=== PATIENT | female | born 1955 | race Caucasian/White ===

== ENCOUNTER 2018-01-12 12:32 | Inpatient (IN) | payer MEDICAID, MEDICARE, SELFPAY ==
--- NOTE | 2018-01-12 14:23 | History & Physical ---
History of Present Illness - Date Date of Service for History & Physical: 01/13/18 - History of Present Illness Admitting Diagnosis: Right heel Diabetic ulcer-poss osteomylitis right heel by bone scan-chronic anemia-Left BKA-lymphodema History of Present Illness: Ms. Olivares is a 62 y/o female with recent discharge from [facility] being admitted to swing bed for continued IV antibiotic therapy due diabetic foot ulcer of the right heel. The patient says that her ulcer initially began in July and she was only applying topical antibiotics but then she noticed a foul smell coming from the foot and more discharge. She was being managed as per the wound clinic at [facility] but she failed outpatient therapy and was admitted to [facility] for IV antibiotic therapy. She also has a left BKA and is obese with a sedentary lifestyle. Her other medical history includes hypertension, diabetes mellitus type II, urinary retention and depression. She has been on IV ertapenem and gentamicin but on discharge has only been continued on ertapenem. MRI was not able to be done of the right foot due to weight restrictions. A three phase bone scan was done which showed mild increase in activity with localization to the proximal tarsal bones but no definite osteomyelitis. PCP: Dr. Solano [facility] - Communication Preferred Language?: Slovak - Nutrition Screening Poor oral intake > 1 week: No Unplanned weight loss in specified time frame: No Nutrition Support via tube feedings or parenteral nutrition: No Pressure Ulcer: No Significantly underweight define as BMI <18.5 kg/m2: No Albumin <2.5mg/dL: No Persistent nausea/vomiting/diarrhea >3 days: No Difficulty chewing/swallowing/mouth sores: No Admitting Diagnosis: Yes Nutrition Risk Score: Low Risk Past Medical History - SOCIAL HISTORY Smoking Status: Never smoker Drug use: None - SURGICAL HISTORY Past Surgical History: t&a, ovarian cyst, salpingectomy, uterine ablation, hyst , lbka, - RESPIRATORY Hx Respiratory Disorders: Yes Hx Pneumonia: Yes (2-3 yrs ago) - CARDIOVASCULAR Hx Cardio Disorders: Yes Hx Hypotension: Yes Hx Irregular Heartbeat: Yes (states high rate) - NEURO Hx Seizures: No - GI Hx GI Disorders: Yes Hx Nausea/Vomiting: Yes (when riding in back of vehicle) Comment:: hx ventral hernia - Hx Genitourinary Disorders: Yes 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) - ENDOCRINE Hx Endocrine Disorders: Yes Hx Diabetes: Yes Hx Thyroid Disease: No - MUSCULOSKELETAL Hx Musculoskeletal Disorders: Yes Hx Arthritis: Yes Comment:: lbka - PSYCH Hx Psych Problems: Yes Hx Depression: Yes - HEMATOLOGY/ONCOLOGY Hx Hematology/Oncology Disorders: No Family Medical History Hx Alcohol Use: Grandparents Hx Cancer: Father Hx Depression: Brother/Sister Hx Diabetes: Mother, Brother/Sister, Grandparents Hx Heart Disease: Mother Hx Resp Disorders: Grandparents Hx Stroke: Grandparents H&P Meds/Allergies - Allergies Allergies: Allergies Allergy/AdvReac Type Severity Reaction Status Date / Time cefaclor [[facility]] Allergy RASH Verified 10/07/15 15:18 scopolamine Allergy ITCHING Verified 10/07/15 15:18 vancomycin Allergy ITCHING Verified 10/07/15 15:18 - Home Medications Previous Rx's Medication Instructions Recorded Guaifenesin [Mucinex] 600 mg PO BID #60 tabcr 11/18/15 Insulin Detemir [Levemir Flextouch] 50 unit SQ 0900,2100 #5 syringe 11/18/15 Loratadine [Claritin] 10 mg PO DAILY #30 tablet 11/18/15 Ondansetron [Zofran Odt] 4 mg SL Q8H PRN #20 tab.rapdis 11/18/15 Ranitidine HCl [Zantac] 150 mg PO DAILY #30 tablet 11/18/15 Tamsulosin HCl [Flomax] 0.4 mg PO DAILY #30 cap.er.24h 11/18/15 Physical Exam - Vital Signs Vital Signs: Vital Signs - Last 24 Hrs Temp Pulse Resp BP Pulse Ox 01/12/18 12:00 98.1 F 105 H 20 143/73 97 - General General Appearance: Alert, Oriented x3, Cooperative, No acute distress - Head Head exam: Normal inspection - Eye Eye exam: Normal appearance, PERRL Pupils: Normal accommodation - Neck Neck exam: Normal inspection, Full ROM. negative: Tenderness - Respiratory Respiratory exam: Normal lung sounds bilaterally. negative: Respiratory distress - Cardiovascular Cardiovascular Exam: Regular rate, Normal rhythm, Normal heart sounds Peripheral Pulses: 2+: Radial (R), Radial (L) - GI/Abdominal GI/Abdominal exam: Soft, Normal bowel sounds. negative: Tenderness - Extremities Extremities exam: Other (left bka w/ dressing, right heel/plantar surface ulcer with discharge ) Plan - Swing Bed Certification Initial Certification Due: 01/12/18 14 Day Re-Cert Due: 01/26/18 44 Day Re-Cert Due: 02/25/18 74 Day Re-Cert Due: 03/27/18 - Detailed Diagnosis and Plan (1) Diabetic ulcer of right heel Current Visit: Yes Status: Acute Base Code: E11.621 - TYPE 2 DIABETES MELLITUS WITH FOOT ULCER; L97.419 - NON-PRS CHR ULCER OF RIGHT HEEL AND MIDFOOT W UNSP SEVERT Comment: 01/12/18: - oozing wound of the right mid plantar and heel. - on Ertapenem 1gm Q24H, wound care and dressing changes daily. - off loading with elevation of the foot. - follow up with ID/Podiatry. (2) Complete below knee amputation of left lower extremity Current Visit: No Status: Acute Base Code: S88.112A - COMPLETE TRAUM AMP AT LEV BETW KN AND ANKL, L LOW LEG, INIT Comment: 01/12/18: - limited mobility due to left BKA. - PT/OT consult to evaluate and treat. (3) Diabetes mellitus type 2 in obese Current Visit: No Status: Acute Base Code: E11.9 - TYPE 2 DIABETES MELLITUS WITHOUT COMPLICATIONS; E66.9 - OBESITY, UNSPECIFIED Comment: 01/12/18: - Levemir 50units BID,on sliding scale novolog - not on statin NAYELY/ARB due to reported allergy. - CBG AcHs, ADA diet (4) HTN, goal below 140/80 Current Visit: Yes Status: Acute Base Code: I10 - ESSENTIAL (PRIMARY) HYPERTENSION Comment: 01/12/18: resume Hydralazine 50mg TID (5) Depression Current Visit: Yes Status: Acute Base Code: F32.9 - MAJOR DEPRESSIVE DISORDER, SINGLE EPISODE, UNSPECIFIED Comment: 01/12/18: - on Duloxetine 60mg QHS (6) Obesity, morbid, BMI 50 or higher Current Visit: Yes Status: Acute Base Code: E66.01 - MORBID (SEVERE) OBESITY DUE TO EXCESS CALORIES Comment: 01/12/18: - sedentary lifestyle with high cardiovascular risk. - deconditioned as a result of weight and L BKA. - PT/OT daily (7) DVT prophylaxis Current Visit: No Status: Acute Base Code: [id number] - Comment: 01/12/18: - VTE prophylaxis w/ Lovenox 40mg daily. (8) DNR (do not resuscitate) Current Visit: No Status: Acute Base Code: Z66 - DO NOT RESUSCITATE Comment: 01/12/18 - patient is DNR
--- NOTE | 2018-01-12 15:33 | Rehab Evaluation ---
Patient Information - Patient Information Diagnosis: Right heel diabetic ulcer, left BKA, lymphedema, possible osteomyelitis RLE Ordered Treatment: OT Evaluate and Treat Status: Initial Evaluation Surgery: No Past Medical/Surgical Hx: PAST MEDICAL/SURGICAL HISTORY Past Surgical History t&a, ovarian cyst, salpingectomy, uterine ablation, hyst, lbka, PMH - Respiratory Hx Respiratory Disorders Yes Hx Pneumonia Yes: 2-3 yrs ago PMH - Cardiovascular Hx Cardiovascular Disorders Yes Hx Hypotension Yes Hx Irregular Heartbeat Yes: states high rate PMH - Neuro Hx Neurological Disorders No Hx Seizures No PMH - GI Hx Gastrointestinal Disorders Yes Hx Nausea/Vomiting Yes: when riding in back of vehicle Comment: hx ventral hernia PMH - Hx Genitourinary Disorders Yes Hx Urinary Tract Infection Yes: prev after arnp mayer PMH - Endocrine Hx Endocrine Disorders Yes Hx Diabetes Yes Hx Thyroid Disease No PMH - Musculoskeletal Hx Musculoskeletal Disorders Yes Hx Arthritis Yes Comment: lbka PMH - Psych Hx Psychiatric Problems Yes Hx Depression Yes PMH - Hematology/Oncology Hx Hematology/Oncology No Disorders Premorbid Status: Detail (Pt lives alone in a 1 story mobile home. She has a ramp onto a back porch and 5-6 steps leading in the house with a railing on the right side when entering. She has a walk in shower but only completes a sponge bath, she washes her hair in the kitchen sink. She has a standard height toilet with a grab bar. She is mostly wheelchair bound and hasn't been up and down her steps since July. She is Ind with all self cares, meal prep, laundry and home mgmt.) Social History: Detail (Supportive parents) Precautions: Other (Contact isolation) - Time With Patient Total Time Spent With Patient (Min): 90 Treatment Procedures: Detail (OT eval low complexity) Subjective Information - Subjective Information Per Patient Objective Data - Pain Pain Present: No - Mental Status Patient Orientation: Oriented x3 - Visual Perception Appears within normal limits for therapeutic activities - ROM Within normal limits (Aditya UE AROM WNL although shoulder flexion slightly limited but functional.) - Strength/Tone Within normal limits (Aditya UE MMT 4+/5 throughout, endurance limited for level needed with repeated transfers.) - Coordination Appears within normal limits for therapeutic activities - Bed Mobility Needs Assist (Mod assist for supine to sit, max assist x 2 for sit to supine.) - Transfers Needs Assist (Pt able to perform sit to stand from raised bed and wheelchair with CG assist, pt required mod-max assist x 2 for sit to stand from standard height toilet and wheelchair after fatigued.) - Balance Balance Sitting: Good Balance Standing: Fair - Sensation Intact (Aditya UE sensation intact.) - Gait Detail (Pt is not ambulatory at this time) - ADL's/IADL's Detail (Pt able to complete washing hair, sponge bathing, toileting, grooming/ hygiene and donning PJ gown with set up and assist for transfers (see transfer section), she was able to twin wrap her LLE stump with mod assist to position leg. Pt was very fatigued and required multiple rest breaks.) Therapy Assessment - Therapy Assessment Detail (Pt presents with significantly impaired endurance, decreased Ind with transfers and bed mobility which all impair her Ind and safety with ADLs/IADLs.) Problem List - Problem List Occupational Therapy Problem List: Detail (1. Decreased Ind with bed mobility. 2. Decreased endurance and Ind with transfers. 3. Decreased endurance for safe and Ind self cares and IADLs.) Goals - Goals Occupational Therapy Goals: 1. Pt will be Ind with bed mobility. 2. Pt will be safe and Ind with transfers from various surface heights. 3. Pt will be safe and Ind with total body bathing and dressing. 4. Pt will demonstrate improved endurance to allow safe and Ind light meal prep. Prognosis - Prognosis Good Plan - Plan Occupational Therapy Plan: OT 2-4 days per week to address mobility, endurance, ADLs/IADLs to allow return home Indly.
--- NOTE | 2018-01-12 15:34 | Occupational Therapy Tx Note ---
Occupational Therapy Tx Note - Treatment Note Tolerated: Fair Occupational Therapy Treatment Note: Detail (Attempted OT evaluation, pt very fatigued from transfer and prefers to wait until Monday to complete evaluation.)
--- NOTE | 2018-01-12 15:45 | Rehab Evaluation ---
Patient Information - Patient Information Diagnosis: Right heel diabetic ulcer, left BKA, lymphedema, possible osteomyelitis RLE Ordered Treatment: PT Evaluate and Treat Status: Initial Evaluation Surgery: No Past Medical/Surgical Hx: PAST MEDICAL/SURGICAL HISTORY Past Surgical History t&a, ovarian cyst, salpingectomy, uterine ablation, hyst, lbka, PMH - Respiratory Hx Respiratory Disorders Yes Hx Pneumonia Yes: 2-3 yrs ago PMH - Cardiovascular Hx Cardiovascular Disorders Yes Hx Hypotension Yes Hx Irregular Heartbeat Yes: states high rate PMH - Neuro Hx Neurological Disorders No Hx Seizures No PMH - GI Hx Gastrointestinal Disorders Yes Hx Nausea/Vomiting Yes: when riding in back of vehicle Comment: hx ventral hernia PMH - Hx Genitourinary Disorders Yes 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 She has a ramp onto a back porch and 5-6 steps leading in the house with a railing on the right side when entering. She has a walk in shower but only completes a sponge bath, she washes her hair in the kitchen sink. She has a standard height toilet with a grab bar. She is mostly wheelchair bound and hasn't been up and down her steps since July. She is Ind with all self cares, meal prep, laundry and home mgmt.) Social History: Detail (Supportive parents) Precautions: Other (Contact isolation) - Time With Patient Total Time Spent With Patient (Min): 30 Treatment Procedures: Detail (Initial Evaluation) Subjective Information - Subjective Information Per Patient (Patient reported pain in B LE, but did not rate the pain using 0- 10 scale. Patient also reported shortness of breath during physical activity.) Objective Data - Pain Pain Present: Yes - Mental Status Patient Orientation: Oriented x3 - Visual Perception Appears within normal limits for therapeutic activities - ROM Other (Needs to be assessed.) - Strength/Tone Not within normal limits (R LE hip flexion 2+/5 and painful, hip ABD 4+/5, hip ADD 4+/5, knee extension 3+/5 and painful, PF 4/5, DF 4/5. LLE hip flexion 2+/5 , knee extension 4/5, knee flexion 4/5.) - Bed Mobility Needs Assist (Patient requires MOD assist to help move L LE during supine to sit. Patient was IND with upper body.) - Transfers Independent (When not fatigued the patient required CG for safety with sit to and from stand transfer and with bed to wheelchair transfer , pivot transfer with use of walker.) - Balance Balance Sitting: Good Balance Standing: Poor (Due to Standing on one leg(R LE) with WB on ball of foot. Patient stands with support of walker.) - Gait Detail (Patient is nonambulatory.) Therapy Assessment - Therapy Assessment Detail (Patient requires MOD assist with bed mobility and CG for safety during transfers when not fatigued.) Problem List - Problem List Physical Therapy Problem List: Detail (1) Reduced tolerance for physical activity 2) Limited B LE AROM (Needs to be assessed) 3) Limited strength in B LE 4) B LE pain 5) Non-ambulatory/ non-WB on heel 6) Requires assistance with bed mobility) Goals - Goals Physical Therapy Goals: 1) Patient will tolerate 30 minutes of physical activity. 2) Patient will increase MMT by 1/3 of a grade in all motions in order to improve sit to stand transfers. 3) Patient will pivot transfer IND. 4 ) Patient will ambulate 3 steps with MOD assist. 5) Patient will be IND with all bed mobility. 6) Assess ROM Prognosis - Prognosis Moderate Plan - Plan Physical Therapy Plan: Patient will be seen 1-2 times a day (Mon-Fri).
--- NOTE | 2018-01-12 15:48 | Physical Therapy Tx Note ---
Physical Therapy Tx Note - Treatment Note Tolerated: Poor Total Time Spent With Patient: 15 Physical Therapy Tx Note: Detail (Patient was in bed upon arrival. Social/home history was reviewed with the patient. Patient did not agree to any further PT services due to fatigue. Will evaluate patient on 01/15/18.)
[2018-01-12] MEDS: NOVOLOG FLEXPEN (INSULIN ASPART) 100 UNITS/ML SQ SCH (17:42)
[2018-01-12] MEDS: LEVEMIR FLEXTOUCH 100 UNIT/ML INSULIN PEN SQ SCH (22:24)
[2018-01-12] MEDS: GUAIFENESIN 600 MG TABCR PO SCH (22:25)
[2018-01-12] MEDS: HYDRALAZINE HCL 25 MG TABLET PO SCH (22:25)
[2018-01-12] MEDS: DULOXETINE HCL 30 MG CAPSULE.DR PO SCH (22:26)
[2018-01-13] MEDS: NOVOLOG FLEXPEN (INSULIN ASPART) 100 UNITS/ML SQ SCH ×3 (08:51→21:45)
[2018-01-13] MEDS: HYDRALAZINE HCL 25 MG TABLET PO SCH ×4 (09:27→21:53)
[2018-01-13] MEDS: RANITIDINE HCL 150 MG TABLET PO SCH (09:27)
[2018-01-13] MEDS: TAMSULOSIN HCL 0.4 MG CAP.ER.24H PO SCH (09:27)
[2018-01-13] MEDS: GUAIFENESIN 600 MG TABCR PO SCH ×2 (09:28→21:43)
[2018-01-13] MEDS: ENOXAPARIN 40 MG/0.4 ML SYR SQ SCH (09:29)
[2018-01-13] MEDS: ERTAPENEM SODIUM 1 G in 0.9 % SODIUM CHLORIDE 100ML 100 ML IV SCH (10:00)
[2018-01-13] MEDS: LEVEMIR FLEXTOUCH 100 UNIT/ML INSULIN PEN SQ SCH ×2 (10:00→21:46)
[2018-01-13] MEDS: DULOXETINE HCL 30 MG CAPSULE.DR PO SCH (21:44)
[2018-01-14] MEDS: NOVOLOG FLEXPEN (INSULIN ASPART) 100 UNITS/ML SQ SCH ×3 (09:18→18:02)
[2018-01-14] MEDS: GUAIFENESIN 600 MG TABCR PO SCH ×2 (11:53→22:54)
[2018-01-14] MEDS: TAMSULOSIN HCL 0.4 MG CAP.ER.24H PO SCH (11:53)
[2018-01-14] MEDS: RANITIDINE HCL 150 MG TABLET PO SCH (11:53)
[2018-01-14] MEDS: HYDRALAZINE HCL 25 MG TABLET PO SCH ×3 (11:53→22:55)
[2018-01-14] MEDS: LEVEMIR FLEXTOUCH 100 UNIT/ML INSULIN PEN SQ SCH ×2 (11:54→22:53)
[2018-01-14] MEDS: ENOXAPARIN 40 MG/0.4 ML SYR SQ SCH (11:54)
[2018-01-14] MEDS: ERTAPENEM SODIUM 1 G in 0.9 % SODIUM CHLORIDE 100ML 100 ML IV SCH (11:57)
[2018-01-14] MEDS ORDERED: HEPARIN SODIUM FLUSH 100 UNITS/ML SYR 5ML IVP ONE (13:47)
[2018-01-14] MEDS ORDERED: 0.9 % SODIUM CHLORIDE 10ML SYR IVP ONE (13:49)
[2018-01-14] MEDS: DULOXETINE HCL 30 MG CAPSULE.DR PO SCH (22:55)
[2018-01-15] MEDS: NOVOLOG FLEXPEN (INSULIN ASPART) 100 UNITS/ML SQ SCH ×4 (07:44→17:37)
[2018-01-15] MEDS: HYDRALAZINE HCL 25 MG TABLET PO SCH ×3 (11:05→22:16)
[2018-01-15] MEDS: ERTAPENEM SODIUM 1 G in 0.9 % SODIUM CHLORIDE 100ML 100 ML IV SCH (11:06)
[2018-01-15] MEDS: TAMSULOSIN HCL 0.4 MG CAP.ER.24H PO SCH (11:06)
[2018-01-15] MEDS: RANITIDINE HCL 150 MG TABLET PO SCH (11:09)
[2018-01-15] MEDS: GUAIFENESIN 600 MG TABCR PO SCH ×2 (11:09→22:16)
[2018-01-15] MEDS: ENOXAPARIN 40 MG/0.4 ML SYR SQ SCH (11:09)
[2018-01-15] MEDS: LEVEMIR FLEXTOUCH 100 UNIT/ML INSULIN PEN SQ SCH ×2 (11:18→22:17)
[2018-01-15] MEDS: 0.9 % SODIUM CHLORIDE 10ML SYR IVP SCH (22:15)
[2018-01-15] MEDS: DULOXETINE HCL 30 MG CAPSULE.DR PO SCH (22:17)
[2018-01-16] MEDS: NOVOLOG FLEXPEN (INSULIN ASPART) 100 UNITS/ML SQ SCH ×3 (07:33→17:43)
[2018-01-16] MEDS: HYDRALAZINE HCL 25 MG TABLET PO SCH ×3 (11:19→22:08)
[2018-01-16] MEDS: HEPARIN SODIUM FLUSH 100 UNITS/ML SYR 5ML IVP SCH ×2 (11:20→22:09)
[2018-01-16] MEDS: RANITIDINE HCL 150 MG TABLET PO SCH (11:20)
[2018-01-16] MEDS: ENOXAPARIN 40 MG/0.4 ML SYR SQ SCH (11:20)
[2018-01-16] MEDS: TAMSULOSIN HCL 0.4 MG CAP.ER.24H PO SCH (11:20)
[2018-01-16] MEDS: GUAIFENESIN 600 MG TABCR PO SCH ×2 (11:20→22:08)
[2018-01-16] MEDS: ERTAPENEM SODIUM 1 G in 0.9 % SODIUM CHLORIDE 100ML 100 ML IV SCH (11:21)
[2018-01-16] MEDS: LEVEMIR FLEXTOUCH 100 UNIT/ML INSULIN PEN SQ SCH ×2 (11:33→22:09)
--- NOTE | 2018-01-16 11:36 | Occupational Therapy Tx Note ---
Occupational Therapy Tx Note - Treatment Note Tolerated: Good Total Time Spent With Patient: 30 (ADL, ther activity) Occupational Therapy Treatment Note: Detail (S: Pt resting in bed, reports legs feel fatigued today. O: Supine to sit Indly with use of hospital bed rail. Sit to stand with bed raised and transferred to wheelchair with set up and use of walker. Pt propelled self to bathroom and completed grooming/ hygiene at sink Indly. Pt propelled back to room Indly and completed kiya UE AROM exercises x 10 reps each - shoulder flexion, shoulder abduction, arm circles forward and reverse, elbow flexion/extension. Pt required short rest breaks due to fatigue/shortness of breath. Reviewed bedroom and bathroom set up , pt may benefit from commode and hospital bed at home. Pt left up in chair. A : Ind with grooming/hygiene, Ind with supine to sit and transfer with hospital bed, decreased endurance continues with activity) Occupational Therapy Problem List: Detail (1. Decreased Ind with bed mobility. 2. Decreased endurance and Ind with transfers. 3. Decreased endurance for safe and Ind self cares and IADLs.) Occupational Therapy Goals: 1. Pt will be Ind with bed mobility. 2. Pt will be safe and Ind with transfers from various surface heights. 3. Pt will be safe and Ind with total body bathing and dressing. 4. Pt will demonstrate improved endurance to allow safe and Ind light meal prep. Prognosis: Good Occupational Therapy Plan: OT 2-4 days per week to address mobility, endurance, ADLs/IADLs to allow return home Indly.
[2018-01-16] MEDS: 0.9 % SODIUM CHLORIDE 10ML SYR IVP SCH ×2 (14:24→22:08)
--- NOTE | 2018-01-16 15:27 | Physical Therapy Tx Note ---
Physical Therapy Tx Note - Treatment Note Tolerated: Good Total Time Spent With Patient: 20 Physical Therapy Tx Note: Detail (The patient was sleeping when PT arrived. The patient completed the following LE strengthening exercises: hip adductor squeezes, L LE hip abduction, gluteal squeezes, SAQ, bilateral hip marches, LAQ and L SLR, R quad sets all x15-20 reps. The patient was shown a leg creative guru and demonstrated in it's proper use. The patient acheived supine to sit indpendently. Discussed the patient's bedroom set up and transfer techniques and potential equipment needs.) Physical Therapy Problem List: Detail (1) Reduced tolerance for physical activity 2) Limited B LE AROM (Needs to be assessed) 3) Limited strength in B LE 4) B LE pain 5) Non-ambulatory/ non-WB on heel 6) Requires assistance with bed mobility) Physical Therapy Goals: 1) Patient will tolerate 30 minutes of physical activity. 2) Patient will increase MMT by 1/3 of a grade in all motions in order to improve sit to stand transfers. 3) Patient will pivot transfer IND. 4 ) Patient will ambulate 3 steps with MOD assist. 5) Patient will be IND with all bed mobility. 6) Assess ROM Physical Therapy Plan: Patient will be seen 1-2 times a day (Mon-Fri).
[2018-01-16] MEDS: DULOXETINE HCL 30 MG CAPSULE.DR PO SCH (22:07)
[2018-01-17] MEDS: 0.9 % SODIUM CHLORIDE 10ML SYR IVP SCH ×3 (00:02→22:07)
[2018-01-17] MEDS: NOVOLOG FLEXPEN (INSULIN ASPART) 100 UNITS/ML SQ SCH (07:22)
[2018-01-17] MEDS ORDERED: ZINC OXIDE 28.35 GM TUBE TOP ONE (09:15)
[2018-01-17] MEDS: ENOXAPARIN 40 MG/0.4 ML SYR SQ SCH (09:29)
[2018-01-17] MEDS: LEVEMIR FLEXTOUCH 100 UNIT/ML INSULIN PEN SQ SCH ×2 (09:30→22:06)
[2018-01-17] MEDS: TAMSULOSIN HCL 0.4 MG CAP.ER.24H PO SCH (09:30)
[2018-01-17] MEDS: GUAIFENESIN 600 MG TABCR PO SCH ×2 (09:30→22:08)
[2018-01-17] MEDS: RANITIDINE HCL 150 MG TABLET PO SCH (09:30)
[2018-01-17] MEDS: HYDRALAZINE HCL 25 MG TABLET PO SCH ×3 (09:30→22:07)
[2018-01-17] MEDS: ERTAPENEM SODIUM 1 G in 0.9 % SODIUM CHLORIDE 100ML 100 ML IV SCH (09:41)
[2018-01-17] MEDS ORDERED: NOVOLOG FLEXPEN (INSULIN ASPART) 100 UNITS/ML SQ PRN (10:34)
--- NOTE | 2018-01-17 11:24 | Physical Therapy Tx Note ---
Physical Therapy Tx Note - Treatment Note Physical Therapy Tx Note: Detail (The patient was seen jointly with Strip Deburrer from [facility] for trial use of prosthesis for standing and transfers. The patient could not tolerate the pressure of prosthesis strap on inner thigh of residual leg. After discussion with Strip Deburrer , it was decided due to skin condition, increased edema, and increased pain with use of prosthesis, that the patient would require a new prosthesis which cost would be out of pocket. Strip Deburrer was doubtful that patient would even be able to tolerate a new prosthetic and therefore was a questionable candidate. Strip Deburrer talked to patient concerning prosthetic candidancy. The patient was too fatigued to participate in PT treatment.) Physical Therapy Problem List: Detail (1) Reduced tolerance for physical activity 2) Limited B LE AROM (Needs to be assessed) 3) Limited strength in B LE 4) B LE pain 5) Non-ambulatory/ non-WB on heel 6) Requires assistance with bed mobility) Physical Therapy Goals: 1) Patient will tolerate 30 minutes of physical activity. 2) Patient will increase MMT by 1/3 of a grade in all motions in order to improve sit to stand transfers. 3) Patient will pivot transfer IND. 4 ) Patient will ambulate 3 steps with MOD assist. 5) Patient will be IND with all bed mobility. 6) Assess ROM Physical Therapy Plan: Patient will be seen 1-2 times a day (Mon-Fri).
[2018-01-17] MEDS: HEPARIN SODIUM FLUSH 100 UNITS/ML SYR 5ML IVP SCH ×2 (11:30→22:07)
--- NOTE | 2018-01-17 12:50 | Physician Progress Note ---
Subjective - Date Date of Physician Progress Note: 01/17/18 - Subjective Subjective Comment: Pt complains that her insulin SS is too high and that she would like to be changed to her home SS which she explained is 1 unit for every 19 units over 120. She states that her glucose levels have even been down to 50 because of the aggressiveness of the SS at the hospital. No other complaints today. Objective - Vital Signs Vital Signs: Vital Signs - Last 24 Hrs Temp Pulse Resp BP BP Pulse Ox 01/17/18 08:00 98.9 F 97 H 18 119/59 95 01/16/18 20:00 98.7 F 96 H 20 138/63 97 - General General Appearance: Alert, Oriented x3, Cooperative, No acute distress Limitations: Physical limitation (lymphadema in legs and BKA) - Head Head exam: Normal inspection - Eye Eye exam: Normal appearance - ENT ENT exam: Mucous membranes moist, Normal external ear exam Nasal Exam: Normal inspection. negative: Discharge Mouth exam: Normal external inspection - Neck Neck exam: Normal inspection, Full ROM - Respiratory Respiratory exam: Normal lung sounds bilaterally. 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 - off loading with elevation of the foot. - follow up with ID/Podiatry. Current Visit: Yes Status: Acute Base Code: E11.621 - TYPE 2 DIABETES MELLITUS WITH FOOT ULCER; L97.419 - NON-PRS CHR ULCER OF RIGHT HEEL AND MIDFOOT W UNSP SEVERT (2) Diabetes mellitus type 2 in obese Plan: - Reduce SS to home dosage. - Continue 50units long acting BID. - Glucose checks as scheduled. - not on statin NAYELY/ARB due to reported allergy. - CBG AcHs, ADA diet Current Visit: Yes Status: Chronic Base Code: E11.9 - TYPE 2 DIABETES MELLITUS WITHOUT COMPLICATIONS; E66.9 - OBESITY, UNSPECIFIED (3) Depression Plan: - on Duloxetine 60mg QHS Current Visit: Yes Status: Chronic Base Code: F32.9 - MAJOR DEPRESSIVE DISORDER, SINGLE EPISODE, UNSPECIFIED (4) HTN, goal below 140/80 Plan: - Hydralazine 50mg TID Current Visit: Yes Status: Chronic Base Code: I10 - ESSENTIAL (PRIMARY) HYPERTENSION (5) Complete below knee amputation of left lower extremity Plan: - [facility] from prosthetics to find appropriate prosthetic for pt. - limited mobility due to left BKA. - PT/OT on case Current Visit: Yes Status: Chronic Base Code: S88.112A - COMPLETE TRAUM AMP AT LEV BETW KN AND ANKL, L LOW LEG, INIT (6) DVT prophylaxis Plan: - Lovenox as prescribed. Current Visit: Yes Status: Acute Base Code: [id number] - Results - Labs Result Diagrams: 01/18/18 10:00 01/18/18 10:00 Labs Last 24 Hours: Laboratory Results - last 24 hr 01/16/18 01/16/18 01/16/18 17:55 17:59 21:54 POC Glucose 106 79 118 H 01/17/18 06:45 POC Glucose 109 DVT/PE Assessment - Risk for VTE Risk for VTE: Yes Risk Level: High Risk Assessment Date: 01/17/18 Risk Assessment Time: 12:00 VTE Orders Placed or Will Be Placed: Yes - Active Medicaitons Current Medications: Current Medications Duloxetine HCl (Cymbalta) 60 mg PO QHS [facility] Last Admin: 01/16/18 22:07 Dose: 60 mg Enoxaparin Sodium (Lovenox) 40 mg SQ DAILY [facility] Last Admin: 01/17/18 09:29 Dose: 40 mg Guaifenesin (Mucinex) 600 mg PO BID [facility] Last Admin: 01/17/18 09:30 Dose: 600 mg Heparin Sodium (Porcine) () 500 unit IVP BID [facility] Last Admin: 01/17/18 11:30 Dose: 500 unit Hydralazine HCl (Apresoline) 50 mg PO TID [facility] Last Admin: 01/17/18 09:30 Dose: 50 mg Ertapenem 1 g/ Sodium Chloride 100 mls @ 100 mls/hr IV DAILY [facility] Last Infusion: 01/17/18 11:46 Dose: Infused Insulin Aspart (Novolog Flexpen) 1 unit SQ QIDACHS PRN PRN Reason: HYPERGLYCEMIA Insulin Detemir (Levemir Flextouch) 50 unit SQ BID [facility] Last Admin: 01/17/18 09:30 Dose: 50 unit Ranitidine HCl (Zantac) 150 mg PO DAILY [facility] Last Admin: 01/17/18 09:30 Dose: 150 mg Sodium Chloride () 10 ml IVP Q12H [facility] Last Admin: 01/17/18 11:30 Dose: 10 ml Tamsulosin HCl (Flomax) 0.4 mg PO DAILY [facility] Last Admin: 01/17/18 09:30 Dose: 0.4 mg AMI Plan - Labs Result Diagrams: 01/18/18 10:00 01/18/18 10:00
--- NOTE | 2018-01-17 14:31 | Occupational Therapy Tx Note ---
Occupational Therapy Tx Note - Treatment Note Tolerated: Good Total Time Spent With Patient: 35 (ther ex) Occupational Therapy Treatment Note: Detail (S: Pt finishing toileting with nursing. O: Sitting at EOB pt completed red theraputty for house wrecker strenghtening/ endurance x 8 minutes kiya hands. Pt completed 15-20 reps of kiya elbow extension , kiya wrist flexion, ikya wrist extension, kiya scapular squeezes, left shoulder flexion, left bicep curls. Pt educated re: continuing with these exercises 2-3 times daily and she verbalized understanding. Discussed possibility of needing additional ramp at entrance, pt resistant to this but agreeable to think about it. A: Endurance continues to be somewhat impaired but overall improving.) Occupational Therapy Problem List: Detail (1. Decreased Ind with bed mobility. 2. Decreased endurance and Ind with transfers. 3. Decreased endurance for safe and Ind self cares and IADLs.) Occupational Therapy Goals: 1. Pt will be Ind with bed mobility. 2. Pt will be safe and Ind with transfers from various surface heights. 3. Pt will be safe and Ind with total body bathing and dressing. 4. Pt will demonstrate improved endurance to allow safe and Ind light meal prep. Prognosis: Good Occupational Therapy Plan: OT 2-4 days per week to address mobility, endurance, ADLs/IADLs to allow return home Indly.
[2018-01-17] MEDS: DULOXETINE HCL 30 MG CAPSULE.DR PO SCH (22:08)
[2018-01-18] MEDS: 0.9 % SODIUM CHLORIDE 10ML SYR IVP SCH ×2 (11:01→23:04)
[2018-01-18] MEDS: ENOXAPARIN 40 MG/0.4 ML SYR SQ SCH (11:01)
[2018-01-18] MEDS: HYDRALAZINE HCL 25 MG TABLET PO SCH ×4 (11:01→22:35)
[2018-01-18] MEDS: GUAIFENESIN 600 MG TABCR PO SCH ×2 (11:02→22:37)
[2018-01-18] MEDS: TAMSULOSIN HCL 0.4 MG CAP.ER.24H PO SCH (11:02)
[2018-01-18] MEDS: RANITIDINE HCL 150 MG TABLET PO SCH (11:02)
[2018-01-18] MEDS: LEVEMIR FLEXTOUCH 100 UNIT/ML INSULIN PEN SQ SCH ×2 (11:04→22:29)
[2018-01-18] MEDS: ERTAPENEM SODIUM 1 G in 0.9 % SODIUM CHLORIDE 100ML 100 ML IV SCH (11:05)
[2018-01-18 11:31] LABS: BASO % 0.4 % (0-6); EOS % 5.1 % (0-6); GRAN % 67.2 % (47-80); HEMATOCRIT 29.3 % (35.0-47.0); HEMOGLOBIN 8.6 gm/dl (11.6-16.0); MEAN CELL VOLUME 86.9 fl (81-97); MEAN CORPUSCULAR HEMOGLOBIN 25.5 pg (27-33); MEAN CORPUSCULAR HGB CONC 29.4 g/dl (32-36); MEAN PLATELET VOLUME 10.2 fl (7.4-10.4); MONO % 9.3 % (0-9); PLATELET COUNT 228 K/uL (130-400); RED BLOOD COUNT 3.37 M/uL (3.80-5.40); RED CELL DISTRIBUTION WIDTH 14.7 % (11.5-14.5); WHITE BLOOD COUNT W/O DIFF 6.9 K/uL (4.2-12.2)
--- NOTE | 2018-01-18 11:36 | Physical Therapy Tx Note ---
Physical Therapy Tx Note - Treatment Note Tolerated: Good Total Time Spent With Patient: 35 Physical Therapy Tx Note: Detail (Patient states no new complaints. Patient was reclined in bed upon ELECTORATE OFFICER arrival. Patient performed the following exercises x10-15 reps each: ankle pumps, quad sets, glut squeezes, abdominal isometrics, supine kicks left knee, SLR left, heel slides right. isometric hip abduction, and isometric hip adduction. Patient tolerated treatment well. Patient reports fatigued after treatment. Patient was left reclined in bed with call light within reach.) Physical Therapy Problem List: Detail (1) Reduced tolerance for physical activity 2) Limited B LE AROM (Needs to be assessed) 3) Limited strength in B LE 4) B LE pain 5) Non-ambulatory/ non-WB on heel 6) Requires assistance with bed mobility) Physical Therapy Goals: 1) Patient will tolerate 30 minutes of physical activity. 2) Patient will increase MMT by 1/3 of a grade in all motions in order to improve sit to stand transfers. 3) Patient will pivot transfer IND. 4 ) Patient will ambulate 3 steps with MOD assist. 5) Patient will be IND with all bed mobility. 6) Assess ROM Prognosis: Good Physical Therapy Plan: Patient will be seen 1-2 times a day (Mon-Fri).
[2018-01-18 11:50] LABS: CREATININE 1.6 mg/dL (0.5-0.9)
[2018-01-18] MEDS ORDERED: CALCIUM GLUCONATE IV ONE (12:17)
[2018-01-18] MEDS ORDERED: SODIUM CHLORIDE 0.9% IV ONE (12:17)
[2018-01-18] MEDS ORDERED: SPS 15 GM/60 ML PO ONE (12:21)
[2018-01-18] MEDS ORDERED: ALBUTEROL SULFATE (0.083%) 2.5 MG/3 ML NEB INH ONE (12:47)
[2018-01-18] MEDS: NOVOLOG FLEXPEN (INSULIN ASPART) 100 UNITS/ML SQ SCH ×3 (12:47→22:28)
--- NOTE | 2018-01-18 13:04 | Physician Progress Note ---
Subjective - Date Date of Physician Progress Note: 01/18/18 - Subjective Subjective Comment: Notified by nurse that the Pt's K+ is elevated currently at 6.2. I have come to evaluate the pt at bedside. She denies of any complaints at this time. No weakness, palpitations, CP, or SOB. She is feeling as she has at baseline. 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 negative: Discharge Mouth exam: Normal external inspection - Neck Neck exam: Normal inspection, Full ROM - Respiratory Respiratory exam: Normal lung sounds bilaterally. negative: Respiratory distress - Cardiovascular Cardiovascular Exam: Regular rate, Normal rhythm, Systolic murmur (2/6, known) Peripheral Pulses: 2+: Radial (R), Radial (L) - GI/Abdominal GI/Abdominal exam: Soft, Normal bowel sounds. negative: Tenderness - Extremities Extremities exam: Other (left bka w/ dressing, lymphadema in both legs - wrapped. Right heel wound is dry. No erythema or oozing. ) - Psychiatric Psychiatric exam: Normal affect, Normal mood Assessment and Plan - Assessment and Plan (1) Hyperkalemia Plan: - Insulin given per SS. - Kayexelate given 15 mg PO. - Calcium gluconate to stabilize heart tissue given. - Albuterol nebulized once. - Will rpt K+ level in PM. - Pt is asymptomatic at this time and K+ can be decreased slowly throughout the day. - Tele applied to monitor heart. Current Visit: Yes Status: Acute Base Code: E87.5 - HYPERKALEMIA Priority : High (2) Diabetic ulcer of right heel Plan: - on Ertapenem 1gm Q24H, wound care and dressing changes daily. - off loading with elevation of the foot. - follow up with ID/Podiatry. Current Visit: Yes Status: Acute Base Code: E11.621 - TYPE 2 DIABETES MELLITUS WITH FOOT ULCER; L97.419 - NON-PRS CHR ULCER OF RIGHT HEEL AND MIDFOOT W UNSP SEVERT (3) Diabetes mellitus type 2 in obese Plan: - Reduce SS to home dosage. - Continue 50units long acting BID. - Glucose checks as scheduled. - not on statin NAYELY/ARB due to reported allergy. - CBG AcHs, ADA diet Current Visit: Yes Status: Chronic Base Code: E11.9 - TYPE 2 DIABETES MELLITUS WITHOUT COMPLICATIONS; E66.9 - OBESITY, UNSPECIFIED (4) Depression Plan: - on Duloxetine 60mg QHS Current Visit: Yes Status: Chronic Base Code: F32.9 - MAJOR DEPRESSIVE DISORDER, SINGLE EPISODE, UNSPECIFIED (5) HTN, goal below 140/80 Plan: - Hydralazine 50mg TID Current Visit: Yes Status: Chronic Base Code: I10 - ESSENTIAL (PRIMARY) HYPERTENSION (6) Complete below knee amputation of left lower extremity Plan: - [facility] from prosthetics to find appropriate prosthetic for pt. - limited mobility due to left BKA. - PT/OT on case Current Visit: Yes Status: Chronic Base Code: S88.112A - COMPLETE TRAUM AMP AT LEV BETW KN AND ANKL, L LOW LEG, INIT (7) DVT prophylaxis Plan: - Lovenox as prescribed. Current Visit: Yes Status: Acute Base Code: [id number] - Results - Labs Result Diagrams: 01/18/18 11:15 01/18/18 11:15 Labs Last 24 Hours: Laboratory Results - last 24 hr 01/17/18 01/17/18 01/18/18 11:45 21:36 11:15 WBC 6.9 RBC 3.37 L Hgb 8.6 L Hct 29.3 L MCV 86.9 MCH 25.5 L MCHC 29.4 L RDW 14.7 H Plt Count 228 MPV 10.2 Gran % 67.2 Lymphocytes % 18.0 Monocytes % 9.3 H Eosinophils % 5.1 Basophils % 0.4 Sodium Potassium Chloride Carbon Dioxide Anion Gap BUN Creatinine Estimated GFR POC Glucose 126 H 160 H Random Glucose Calcium 01/18/18 01/18/18 11:15 12:39 WBC RBC Hgb Hct MCV MCH MCHC RDW Plt Count MPV Gran % Lymphocytes % Monocytes % Eosinophils % Basophils % Sodium 137 Potassium 6.2 H* Chloride 103 Carbon Dioxide 24.0 Anion Gap 10.0 BUN 38 H Creatinine 1.6 H Estimated GFR 35 POC Glucose 153 H Random Glucose 166 H Calcium 8.6 L DVT/PE Assessment - Risk for VTE Risk for VTE: No Risk Level: High Risk Assessment Date: 01/17/18 Risk Assessment Time: 12:00 VTE Orders Placed or Will Be Placed: Yes - Active Medicaitons Current Medications: Current Medications Albuterol Sulfate () 2.5 mg INH NOW ONE Stop: 01/18/18 12:48 Duloxetine HCl (Cymbalta) 60 mg PO QHS [facility] Last Admin: 01/17/18 22:08 Dose: 60 mg Enoxaparin Sodium (Lovenox) 40 mg SQ DAILY [facility] Last Admin: 01/18/18 11:01 Dose: 40 mg Guaifenesin (Mucinex) 600 mg PO BID [facility] Last Admin: 01/18/18 11:02 Dose: 600 mg Heparin Sodium (Porcine) () 500 unit IVP BID [facility] Last Admin: 01/17/18 22:07 Dose: 500 unit Hydralazine HCl (Apresoline) 50 mg PO TID [facility] Last Admin: 01/18/18 11:01 Dose: 50 mg Ertapenem 1 g/ Sodium Chloride 100 mls @ 100 mls/hr IV DAILY [facility] Last Admin: 01/18/18 11:05 Dose: 100 mls/hr Calcium Gluconate 1,500 mg/ (Sodium Chloride) 115 mls @ 100 mls/hr IV NOW ONE Stop: 01/18/18 13:22 Insulin Aspart (Novolog Flexpen) 1 unit SQ QIDACHS [facility] Last Admin: 01/18/18 12:47 Dose: 2 unit Insulin Detemir (Levemir Flextouch) 50 unit SQ BID [facility] Last Admin: 01/18/18 11:04 Dose: 50 unit Ranitidine HCl (Zantac) 150 mg PO DAILY [facility] Last Admin: 01/18/18 11:02 Dose: 150 mg Sodium Chloride () 10 ml IVP Q12H [facility] Last Admin: 01/18/18 11:01 Dose: 10 ml Tamsulosin HCl (Flomax) 0.4 mg PO DAILY [facility] Last Admin: 01/18/18 11:02 Dose: 0.4 mg AMI Plan - Labs Result Diagrams: 01/18/18 11:15 01/18/18 11:15
--- NOTE | 2018-01-18 13:59 | Physical Therapy Tx Note ---
Physical Therapy Tx Note - Treatment Note Tolerated: Poor Total Time Spent With Patient: 35 Physical Therapy Tx Note: Detail (Patient was seated in bed upon OSTOMY NURSE arrival. OSTOMY NURSE entered with nurse and nursing wanted to change sheets and put air mattress on bed. Patient transferred sit to and from stand independently. Patient performed standing left hip abduction x5, squats x5, and left hip flexion x5. Patient states had a cramp in right leg and had to sit down, pt performed independently. Patient states she felt she was slipping off bed. Patient transferred sit to and from stand x2 mod assist x2. Patient was scooted up in seated postition max assist x2. Patient transferred sit to supine max assist x3. Patient scooted up in bed max assist x3. Patient scooted over and up in bed max assist x4. Patient was difficult to scoot due to air mattress. Patient reports feeling tired after standing and transfers. Patient was left supine in bed with call light within reach.) Physical Therapy Problem List: Detail (1) Reduced tolerance for physical activity 2) Limited B LE AROM (Needs to be assessed) 3) Limited strength in B LE 4) B LE pain 5) Non-ambulatory/ non-WB on heel 6) Requires assistance with bed mobility) Physical Therapy Goals: 1) Patient will tolerate 30 minutes of physical activity. 2) Patient will increase MMT by 1/3 of a grade in all motions in order to improve sit to stand transfers. 3) Patient will pivot transfer IND. 4 ) Patient will ambulate 3 steps with MOD assist. 5) Patient will be IND with all bed mobility. 6) Assess ROM Prognosis: Good Physical Therapy Plan: Patient will be seen 1-2 times a day (Mon-Fri).
[2018-01-18] MEDS: HEPARIN SODIUM FLUSH 100 UNITS/ML SYR 5ML IVP SCH ×2 (15:25→23:05)
[2018-01-18 20:26] LABS: CREATININE 1.6 mg/dL (0.5-0.9)
[2018-01-18] MEDS: DULOXETINE HCL 30 MG CAPSULE.DR PO SCH (22:36)
[2018-01-19 07:08] LABS: CREATININE 1.5 mg/dL (0.5-0.9)
[2018-01-19] MEDS: NOVOLOG FLEXPEN (INSULIN ASPART) 100 UNITS/ML SQ SCH ×4 (08:11→21:34)
[2018-01-19] MEDS ORDERED: SPS 15 GM/60 ML PO ONE ×2 (08:30→18:00)
[2018-01-19] MEDS: ENOXAPARIN 40 MG/0.4 ML SYR SQ SCH (09:58)
[2018-01-19] MEDS: HEPARIN SODIUM FLUSH 100 UNITS/ML SYR 5ML IVP SCH ×3 (09:58→21:27)
[2018-01-19] MEDS: ERTAPENEM SODIUM 1 G in 0.9 % SODIUM CHLORIDE 100ML 100 ML IV SCH (09:59)
[2018-01-19] MEDS: RANITIDINE HCL 150 MG TABLET PO SCH (09:59)
[2018-01-19] MEDS: GUAIFENESIN 600 MG TABCR PO SCH ×2 (09:59→21:27)
[2018-01-19] MEDS: TAMSULOSIN HCL 0.4 MG CAP.ER.24H PO SCH (10:00)
[2018-01-19] MEDS: HYDRALAZINE HCL 25 MG TABLET PO SCH ×3 (10:00→21:28)
[2018-01-19] MEDS: 0.9 % SODIUM CHLORIDE 10ML SYR IVP SCH ×3 (10:00→21:27)
[2018-01-19] MEDS: LEVEMIR FLEXTOUCH 100 UNIT/ML INSULIN PEN SQ SCH ×2 (10:01→21:28)
--- NOTE | 2018-01-19 10:52 | Physical Therapy Tx Note ---
Physical Therapy Tx Note - Treatment Note Tolerated: Good Total Time Spent With Patient: 15 Physical Therapy Tx Note: Detail (The patient was in bed when PT arrived. The patient stated the city tax auditor was going to call her concerning modification of prosthesis. The patient completed the following LE exercises. L TKA exercises: SAQ, SLR , resisted hip abduction, gluteal sets, R LE ankle pumps, quad sets and hip abduction and adduction, all exercises reps until fatigued.The patient tolerated treatment well and was independent with LE strengthening HEP.) Physical Therapy Problem List: Detail (1) Reduced tolerance for physical activity 2) Limited B LE AROM (Needs to be assessed) 3) Limited strength in B LE 4) B LE pain 5) Non-ambulatory/ non-WB on heel 6) Requires assistance with bed mobility) Physical Therapy Goals: 1) Patient will tolerate 30 minutes of physical activity. 2) Patient will increase MMT by 1/3 of a grade in all motions in order to improve sit to stand transfers. 3) Patient will pivot transfer IND. 4 ) Patient will ambulate 3 steps with MOD assist. 5) Patient will be IND with all bed mobility. 6) Assess ROM Physical Therapy Plan: Patient will be seen 1-2 times a day (Mon-Fri).
--- NOTE | 2018-01-19 16:28 | Physical Therapy Tx Note ---
Physical Therapy Tx Note - Treatment Note Tolerated: Good Total Time Spent With Patient: 30 Physical Therapy Tx Note: Detail (The patient was in bed when PT arrived. The patient completed the following exercises: L UE: bicep curls, tricep curls, D1 PNF, shoulder flexion, wrist curls bilaterally (re T - band , shoulder abduction bilaterally without resistance. All reps until fatigued. The patient was independent with supine to sit and completed bilateral hip marching and LAQ until fatigued. Patient was left on edge of bed , call light was within reach.) Physical Therapy Problem List: Detail (1) Reduced tolerance for physical activity 2) Limited B LE AROM (Needs to be assessed) 3) Limited strength in B LE 4) B LE pain 5) Non-ambulatory/ non-WB on heel 6) Requires assistance with bed mobility) Physical Therapy Goals: 1) Patient will tolerate 30 minutes of physical activity. 2) Patient will increase MMT by 1/3 of a grade in all motions in order to improve sit to stand transfers. 3) Patient will pivot transfer IND. 4 ) Patient will ambulate 3 steps with MOD assist. 5) Patient will be IND with all bed mobility. 6) Assess ROM Physical Therapy Plan: Patient will be seen 1-2 times a day (Mon-Fri).
[2018-01-19] MEDS: DULOXETINE HCL 30 MG CAPSULE.DR PO SCH (21:28)
[2018-01-20 06:59] LABS: CREATININE 1.4 mg/dL (0.5-0.9)
[2018-01-20] MEDS: NOVOLOG FLEXPEN (INSULIN ASPART) 100 UNITS/ML SQ SCH ×4 (08:20→21:57)
[2018-01-20] MEDS: SPS 15 GM/60 ML PO SCH ×2 (08:22→17:47)
[2018-01-20] MEDS: 0.9 % SODIUM CHLORIDE 10ML SYR IVP SCH ×2 (11:13→21:55)
[2018-01-20] MEDS: HYDRALAZINE HCL 25 MG TABLET PO SCH ×3 (11:13→21:55)
[2018-01-20] MEDS: TAMSULOSIN HCL 0.4 MG CAP.ER.24H PO SCH (11:13)
[2018-01-20] MEDS: HEPARIN SODIUM FLUSH 100 UNITS/ML SYR 5ML IVP SCH ×2 (11:13→21:55)
[2018-01-20] MEDS: ERTAPENEM SODIUM 1 G in 0.9 % SODIUM CHLORIDE 100ML 100 ML IV SCH (11:14)
[2018-01-20] MEDS: ENOXAPARIN 40 MG/0.4 ML SYR SQ SCH (11:14)
[2018-01-20] MEDS: RANITIDINE HCL 150 MG TABLET PO SCH (11:15)
[2018-01-20] MEDS: GUAIFENESIN 600 MG TABCR PO SCH ×2 (11:15→21:56)
[2018-01-20] MEDS: LEVEMIR FLEXTOUCH 100 UNIT/ML INSULIN PEN SQ SCH ×2 (11:58→21:57)
[2018-01-20] MEDS: DULOXETINE HCL 30 MG CAPSULE.DR PO SCH (21:56)
[2018-01-21] MEDS: NOVOLOG FLEXPEN (INSULIN ASPART) 100 UNITS/ML SQ SCH ×4 (07:41→22:01)
[2018-01-21] MEDS: SPS 15 GM/60 ML PO SCH ×2 (08:04→17:23)
[2018-01-21] MEDS: ERTAPENEM SODIUM 1 G in 0.9 % SODIUM CHLORIDE 100ML 100 ML IV SCH (09:35)
[2018-01-21] MEDS: ENOXAPARIN 40 MG/0.4 ML SYR SQ SCH (09:36)
[2018-01-21] MEDS: TAMSULOSIN HCL 0.4 MG CAP.ER.24H PO SCH (09:36)
[2018-01-21] MEDS: GUAIFENESIN 600 MG TABCR PO SCH ×2 (09:36→21:55)
[2018-01-21] MEDS: HYDRALAZINE HCL 25 MG TABLET PO SCH ×3 (09:36→21:51)
[2018-01-21] MEDS: RANITIDINE HCL 150 MG TABLET PO SCH (09:36)
[2018-01-21] MEDS: HEPARIN SODIUM FLUSH 100 UNITS/ML SYR 5ML IVP SCH ×2 (09:37→21:51)
[2018-01-21] MEDS: LEVEMIR FLEXTOUCH 100 UNIT/ML INSULIN PEN SQ SCH ×2 (09:37→21:57)
[2018-01-21] MEDS: 0.9 % SODIUM CHLORIDE 10ML SYR IVP SCH ×2 (09:37→21:51)
[2018-01-21] MEDS: DULOXETINE HCL 30 MG CAPSULE.DR PO SCH (21:51)
[2018-01-22 06:42] LABS: CREATININE 1.2 mg/dL (0.5-0.9)
[2018-01-22] MEDS: NOVOLOG FLEXPEN (INSULIN ASPART) 100 UNITS/ML SQ SCH ×4 (08:26→22:01)
[2018-01-22] MEDS: SPS 15 GM/60 ML PO SCH ×2 (08:57→19:17)
[2018-01-22] MEDS: ERTAPENEM SODIUM 1 G in 0.9 % SODIUM CHLORIDE 100ML 100 ML IV SCH (10:31)
[2018-01-22] MEDS: TAMSULOSIN HCL 0.4 MG CAP.ER.24H PO SCH (10:31)
[2018-01-22] MEDS: ENOXAPARIN 40 MG/0.4 ML SYR SQ SCH (10:31)
[2018-01-22] MEDS: RANITIDINE HCL 150 MG TABLET PO SCH (10:31)
[2018-01-22] MEDS: GUAIFENESIN 600 MG TABCR PO SCH ×2 (10:32→22:00)
[2018-01-22] MEDS: LEVEMIR FLEXTOUCH 100 UNIT/ML INSULIN PEN SQ SCH ×2 (10:32→22:02)
[2018-01-22] MEDS: HYDRALAZINE HCL 25 MG TABLET PO SCH ×3 (10:32→21:59)
[2018-01-22] MEDS: 0.9 % SODIUM CHLORIDE 10ML SYR IVP SCH ×3 (10:33→22:02)
[2018-01-22] MEDS: ACETAMINOPHEN 500 MG TABLET PO PRN (10:55)
[2018-01-22] MEDS: HEPARIN SODIUM FLUSH 100 UNITS/ML SYR 5ML IVP SCH ×2 (11:48→21:59)
[2018-01-22] MEDS: DULOXETINE HCL 30 MG CAPSULE.DR PO SCH (21:59)
[2018-01-23] MEDS: 0.9 % SODIUM CHLORIDE 10ML SYR IVP SCH ×6 (00:45→22:52)
[2018-01-23] MEDS: ACETAMINOPHEN 500 MG TABLET PO PRN (05:03)
[2018-01-23] MEDS: NOVOLOG FLEXPEN (INSULIN ASPART) 100 UNITS/ML SQ SCH ×5 (08:04→22:53)
[2018-01-23] MEDS: SPS 15 GM/60 ML PO SCH ×2 (09:35→19:33)
[2018-01-23] MEDS: HYDRALAZINE HCL 25 MG TABLET PO SCH ×3 (09:35→22:34)
[2018-01-23] MEDS: GUAIFENESIN 600 MG TABCR PO SCH ×2 (09:35→22:35)
[2018-01-23] MEDS: TAMSULOSIN HCL 0.4 MG CAP.ER.24H PO SCH (09:35)
[2018-01-23] MEDS: ERTAPENEM SODIUM 1 G in 0.9 % SODIUM CHLORIDE 100ML 100 ML IV SCH (09:36)
[2018-01-23] MEDS: RANITIDINE HCL 150 MG TABLET PO SCH (09:36)
[2018-01-23] MEDS: LEVEMIR FLEXTOUCH 100 UNIT/ML INSULIN PEN SQ SCH ×2 (09:37→22:53)
[2018-01-23] MEDS: ENOXAPARIN 40 MG/0.4 ML SYR SQ SCH (09:40)
[2018-01-23] MEDS: HEPARIN SODIUM FLUSH 100 UNITS/ML SYR 5ML IVP SCH ×2 (11:04→22:36)
--- NOTE | 2018-01-23 11:56 | Physical Therapy Tx Note ---
Physical Therapy Tx Note - Treatment Note Physical Therapy Tx Note: Detail (The patient refused PT secondary leavng for an appointment.) Physical Therapy Problem List: Detail (1) Reduced tolerance for physical activity 2) Limited B LE AROM (Needs to be assessed) 3) Limited strength in B LE 4) B LE pain 5) Non-ambulatory/ non-WB on heel 6) Requires assistance with bed mobility) Physical Therapy Goals: 1) Patient will tolerate 30 minutes of physical activity. 2) Patient will increase MMT by 1/3 of a grade in all motions in order to improve sit to stand transfers. 3) Patient will pivot transfer IND. 4 ) Patient will ambulate 3 steps with MOD assist. 5) Patient will be IND with all bed mobility. 6) Assess ROM Physical Therapy Plan: Patient will be seen 1-2 times a day (Mon-Fri).
[2018-01-23] MEDS: DULOXETINE HCL 30 MG CAPSULE.DR PO SCH (22:34)
[2018-01-24] MEDS: 0.9 % SODIUM CHLORIDE 10ML SYR IVP SCH ×5 (00:53→22:02)
[2018-01-24 07:00] LABS: CREATININE 1.3 mg/dL (0.5-0.9)
[2018-01-24] MEDS: NOVOLOG FLEXPEN (INSULIN ASPART) 100 UNITS/ML SQ SCH ×4 (07:56→22:27)
[2018-01-24] MEDS: SPS 15 GM/60 ML PO SCH (08:43)
[2018-01-24] MEDS: ERTAPENEM SODIUM 1 G in 0.9 % SODIUM CHLORIDE 100ML 100 ML IV SCH (11:23)
[2018-01-24] MEDS: GUAIFENESIN 600 MG TABCR PO SCH ×2 (11:24→22:00)
[2018-01-24] MEDS: RANITIDINE HCL 150 MG TABLET PO SCH (11:24)
[2018-01-24] MEDS: ENOXAPARIN 40 MG/0.4 ML SYR SQ SCH (11:24)
[2018-01-24] MEDS: HYDRALAZINE HCL 25 MG TABLET PO SCH ×3 (11:24→22:00)
--- NOTE | 2018-01-24 11:24 | Occupational Therapy Tx Note ---
Occupational Therapy Tx Note - Treatment Note Tolerated: Good Total Time Spent With Patient: 35 (ther ex) Occupational Therapy Treatment Note: Detail (S: Pt resting in bed. O: Supine to sit Indly, stand pivot transfer to wheelchair with bed raised and use of walker Indly. Pt propelled self 75 feet before becoming fatigued. Pt transported to rehab gym. She completed kiya UE ther ex as follows: weighted pulleys at 5# kiya shoulder extension and triceps, kiya bicep curls 5#, kiya shoulder flexion 3# x 20 reps each. Repetitive overhead reaching and resistive pinching with 1# wrist weight kiya UEs using resistive clothespins. Pt educated to complete wheelchair pushups and propel self in hallway 2 x daily to improve over endurance. Pt reports she is confident with all self cares including sponge bathing, dressing, grooming/hygiene tasks. Pt transported back to room and left up in wheelchair. A: Improved Ind with transfers and bed mobility, endurance improving with UE activity.) Occupational Therapy Problem List: Detail (1. Decreased Ind with bed mobility. 2. Decreased endurance and Ind with transfers. 3. Decreased endurance for safe and Ind self cares and IADLs.) Occupational Therapy Goals: 1. Pt will be Ind with bed mobility. 2. Pt will be safe and Ind with transfers from various surface heights. 3. Pt will be safe and Ind with total body bathing and dressing. 4. Pt will demonstrate improved endurance to allow safe and Ind light meal prep. Prognosis: Good Occupational Therapy Plan: OT 2-4 days per week to address mobility, endurance, ADLs/IADLs to allow return home Indly.
[2018-01-24] MEDS: LEVEMIR FLEXTOUCH 100 UNIT/ML INSULIN PEN SQ SCH ×2 (11:25→22:26)
[2018-01-24] MEDS: TAMSULOSIN HCL 0.4 MG CAP.ER.24H PO SCH (11:25)
[2018-01-24] MEDS: HEPARIN SODIUM FLUSH 100 UNITS/ML SYR 5ML IVP SCH ×2 (12:57→21:59)
--- NOTE | 2018-01-24 15:40 | Physical Therapy Tx Note ---
Physical Therapy Tx Note - Treatment Note Tolerated: Fair Total Time Spent With Patient: 20 Physical Therapy Tx Note: Detail (Patient was up in wheelchair upon arrival, patient did not have any complaints of pain, but did report increased edema in her R LE. Patient was to fatigued to attempt transfers, but did perfrom 1x20 LAQ , ankle pumps, marches, and hip ADD. Patient was left up in wheelchair with R leg in leg rest and call light in reach.) Physical Therapy Problem List: Detail (1) Reduced tolerance for physical activity 2) Limited B LE AROM (Needs to be assessed) 3) Limited strength in B LE 4) B LE pain 5) Non-ambulatory/ non-WB on heel 6) Requires assistance with bed mobility) Physical Therapy Goals: 1) Patient will tolerate 30 minutes of physical activity. 2) Patient will increase MMT by 1/3 of a grade in all motions in order to improve sit to stand transfers. 3) Patient will pivot transfer IND. 4 ) Patient will ambulate 3 steps with MOD assist. 5) Patient will be IND with all bed mobility. 6) Assess ROM Prognosis: Good Physical Therapy Plan: Patient will be seen 1-2 times a day (Mon-Fri).
[2018-01-24] MEDS: DULOXETINE HCL 30 MG CAPSULE.DR PO SCH (21:59)
[2018-01-25] MEDS: 0.9 % SODIUM CHLORIDE 10ML SYR IVP SCH ×4 (01:56→21:37)
[2018-01-25] MEDS: NOVOLOG FLEXPEN (INSULIN ASPART) 100 UNITS/ML SQ SCH ×4 (08:05→23:25)
[2018-01-25] MEDS: SPS 15 GM/60 ML PO SCH (08:07)
[2018-01-25] MEDS: ACETAMINOPHEN 500 MG TABLET PO PRN ×2 (08:08→16:26)
[2018-01-25] MEDS: TAMSULOSIN HCL 0.4 MG CAP.ER.24H PO SCH (09:34)
[2018-01-25] MEDS: HYDRALAZINE HCL 25 MG TABLET PO SCH ×3 (09:34→21:35)
[2018-01-25] MEDS: GUAIFENESIN 600 MG TABCR PO SCH ×2 (09:35→21:35)
[2018-01-25] MEDS: RANITIDINE HCL 150 MG TABLET PO SCH (09:35)
[2018-01-25] MEDS: HEPARIN SODIUM FLUSH 100 UNITS/ML SYR 5ML IVP SCH ×2 (09:36→21:36)
[2018-01-25] MEDS: ERTAPENEM SODIUM 1 G in 0.9 % SODIUM CHLORIDE 100ML 100 ML IV SCH (09:36)
[2018-01-25] MEDS: LEVEMIR FLEXTOUCH 100 UNIT/ML INSULIN PEN SQ SCH ×2 (09:36→23:25)
[2018-01-25] MEDS: ENOXAPARIN 40 MG/0.4 ML SYR SQ SCH (09:36)
--- NOTE | 2018-01-25 11:01 | Physical Therapy Tx Note ---
Physical Therapy Tx Note - Treatment Note Physical Therapy Tx Note: Detail (Patient was reclined in bed sleeping upon CLAMMER arrival. Patient declined treatment due to not feeling well, has headache and is nauseous.) Physical Therapy Problem List: Detail (1) Reduced tolerance for physical activity 2) Limited B LE AROM (Needs to be assessed) 3) Limited strength in B LE 4) B LE pain 5) Non-ambulatory/ non-WB on heel 6) Requires assistance with bed mobility) Physical Therapy Goals: 1) Patient will tolerate 30 minutes of physical activity. 2) Patient will increase MMT by 1/3 of a grade in all motions in order to improve sit to stand transfers. 3) Patient will pivot transfer IND. 4 ) Patient will ambulate 3 steps with MOD assist. 5) Patient will be IND with all bed mobility. 6) Assess ROM Physical Therapy Plan: Patient will be seen 1-2 times a day (Mon-Fri).
[2018-01-25] MEDS: DULOXETINE HCL 30 MG CAPSULE.DR PO SCH (21:34)
[2018-01-26] MEDS: 0.9 % SODIUM CHLORIDE 10ML SYR IVP SCH ×5 (00:40→22:18)
[2018-01-26 07:11] LABS: CREATININE 1.2 mg/dL (0.5-0.9)
[2018-01-26] MEDS: HYDRALAZINE HCL 25 MG TABLET PO SCH ×3 (10:37→22:17)
[2018-01-26] MEDS: RANITIDINE HCL 150 MG TABLET PO SCH (10:37)
[2018-01-26] MEDS: GUAIFENESIN 600 MG TABCR PO SCH ×2 (10:38→22:17)
[2018-01-26] MEDS: ENOXAPARIN 40 MG/0.4 ML SYR SQ SCH (10:38)
[2018-01-26] MEDS: TAMSULOSIN HCL 0.4 MG CAP.ER.24H PO SCH (10:38)
[2018-01-26] MEDS: ERTAPENEM SODIUM 1 G in 0.9 % SODIUM CHLORIDE 100ML 100 ML IV SCH (10:41)
[2018-01-26] MEDS: HEPARIN SODIUM FLUSH 100 UNITS/ML SYR 5ML IVP SCH ×3 (10:54→22:18)
--- NOTE | 2018-01-26 12:25 | Physical Therapy Tx Note ---
Physical Therapy Tx Note - Treatment Note Tolerated: Good Total Time Spent With Patient: 30 Physical Therapy Tx Note: Detail (Patient was lying supine in bed upon arrival, with no complaints of pain. Patient performed supine to sit and standing pivot transfer to a wheelchair IND with SBA for safety. Patient performed 2X20 of ankle pumps, LAQ, hip marches, hip ADD pillow squeeze, and glut sets. Patient tolerated exercises well but complains of R hip pain during marches. Patient was left up in chair with call light in reach.) Physical Therapy Problem List: Detail (1) Reduced tolerance for physical activity 2) Limited B LE AROM (Needs to be assessed) 3) Limited strength in B LE 4) B LE pain 5) Non-ambulatory/ non-WB on heel 6) Requires assistance with bed mobility) Physical Therapy Goals: 1) Patient will tolerate 30 minutes of physical activity. 2) Patient will increase MMT by 1/3 of a grade in all motions in order to improve sit to stand transfers. 3) Patient will pivot transfer IND. 4 ) Patient will ambulate 3 steps with MOD assist. 5) Patient will be IND with all bed mobility. 6) Assess ROM Prognosis: Moderate Physical Therapy Plan: Patient will be seen 1-2 times a day (Mon-Fri).
[2018-01-26] MEDS: NOVOLOG FLEXPEN (INSULIN ASPART) 100 UNITS/ML SQ SCH ×4 (12:57→22:37)
[2018-01-26] MEDS: LEVEMIR FLEXTOUCH 100 UNIT/ML INSULIN PEN SQ SCH ×2 (14:25→22:25)
[2018-01-26] MEDS: SPS 15 GM/60 ML PO SCH ×4 (14:26→22:19)
--- NOTE | 2018-01-26 15:01 | Occupational Therapy Tx Note ---
Occupational Therapy Tx Note - Treatment Note Tolerated: Good Total Time Spent With Patient: 30 (ther ex) Occupational Therapy Treatment Note: Detail (S: Pt up in wheelchair, feeling OK today. O: Pt propelled self 75 feet in wheelchair and then transported to rehab gym vper therapist. Pt completed kiya UE strengthening as follows: weighted pulleys (5#) for shoulder extension 160-45 degrees, elbow extension and shoulder extension 90-minus 10 degrees x 20 reps each. Repetitive overhead reaching with resistive clothespins with 2# wrist weights kiya UEs. Pt transported back to room and left up in wheelchair. A: Increased UE fatigue with 2# wrist weights.) Occupational Therapy Problem List: Detail (1. Decreased Ind with bed mobility. 2. Decreased endurance and Ind with transfers. 3. Decreased endurance for safe and Ind self cares and IADLs.) Occupational Therapy Goals: 1. Pt will be Ind with bed mobility. 2. Pt will be safe and Ind with transfers from various surface heights. 3. Pt will be safe and Ind with total body bathing and dressing. 4. Pt will demonstrate improved endurance to allow safe and Ind light meal prep. Prognosis: Good Occupational Therapy Plan: OT 2-4 days per week to address mobility, endurance, ADLs/IADLs to allow return home Indly.
--- NOTE | 2018-01-26 15:44 | Physician Progress Note ---
Subjective - Date Date of Physician Progress Note: 01/26/18 - Subjective Subjective Comment: Pt denies any complaints today. Nursing noted that she has had a rash on her bottom that they wanted me to look at. They have been applying zinc oxide TP. The nurses state that they added aquasel foam on top, to help prevent the zinc oxide from getting rubbed off onto pants - this has helped and the area and it looks less erythematous. Pt denies any episodes of hypoglycemia since we have been holding sliding scale until glucose is above 180. 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 ) - Back Back exam: Reports: Normal inspection - Psychiatric Psychiatric exam: Normal affect, Normal mood - Skin Type of lesion: Rash (in the central of the gluteal cleft there is bilateral extension of flaking of the skin with mild underlying purple hue. Nursing states that this was red previously. superficial skin peeling noted. No evidence of edema. ) Assessment and Plan - Assessment and Plan (1) Rash Plan: Improving. Continue Zinc Oxide and aquacel foam. Current Visit: Yes Status: Acute Base Code: R21 - RASH AND OTHER NONSPECIFIC SKIN ERUPTION (2) Hyperkalemia Plan: - Insulin given per SS. - Kayexelate 15mg PO BID ordered. - Will rpt K+ level in PM. Current Visit: Yes Status: Acute Base Code: E87.5 - HYPERKALEMIA Priority : High (3) Diabetic ulcer of right heel Plan: - Continue Invanz daily. - Wound care and dressing changes daily. - off loading with elevation of the foot. - follow up with ID - Podiatry states it is improving. Current Visit: Yes Status: Acute Base Code: E11.621 - TYPE 2 DIABETES MELLITUS WITH FOOT ULCER; L97.419 - NON-PRS CHR ULCER OF RIGHT HEEL AND MIDFOOT W UNSP SEVERT (4) Diabetes mellitus type 2 in obese Plan: - Reduced SS to home dosage. Also held insulin unless above 180 given still hypoglycemic complaints with home sliding scale. - Continue 50units long acting BID. - Glucose checks as scheduled. - not on statin NAYELY/ARB due to reported allergy. - ADA diet Current Visit: Yes Status: Chronic Base Code: E11.9 - TYPE 2 DIABETES MELLITUS WITHOUT COMPLICATIONS; E66.9 - OBESITY, UNSPECIFIED (5) Depression Plan: - on Duloxetine 60mg QHS Current Visit: Yes Status: Chronic Base Code: F32.9 - MAJOR DEPRESSIVE DISORDER, SINGLE EPISODE, UNSPECIFIED (6) HTN, goal below 140/80 Plan: - Hydralazine 50mg TID Current Visit: Yes Status: Chronic Base Code: I10 - ESSENTIAL (PRIMARY) HYPERTENSION (7) Complete below knee amputation of left lower extremity Plan: - [place] from prosthetics to find appropriate prosthetic for pt. - limited mobility due to left BKA. - PT/OT on case Current Visit: Yes Status: Chronic Base Code: S88.112A - COMPLETE TRAUM AMP AT LEV BETW KN AND ANKL, L LOW LEG, INIT (8) DVT prophylaxis Plan: - Lovenox as prescribed. Current Visit: Yes Status: Acute Base Code: [id number] - Results - Labs Result Diagrams: 01/18/18 11:15 01/26/18 06:35 Labs Last 24 Hours: Laboratory Results - last 24 hr 01/26/18 01/26/18 01/26/18 00:38 06:35 08:09 Sodium 141 Potassium 4.7 H Chloride 106 Carbon Dioxide 26.0 Anion Gap 9.0 BUN 29 H Creatinine 1.2 H Estimated GFR 49 POC Glucose 174 H 173 H Random Glucose 171 H Calcium 8.2 L 01/26/18 12:12 Sodium Potassium Chloride Carbon Dioxide Anion Gap BUN Creatinine Estimated GFR POC Glucose 183 H Random Glucose Calcium DVT/PE Assessment - Risk for VTE Risk for VTE: No Risk Level: High Risk Assessment Date: 01/17/18 Risk Assessment Time: 12:00 VTE Orders Placed or Will Be Placed: Yes - Active Medicaitons Current Medications: Current Medications Acetaminophen (Tylenol 500mg Tab) 1,000 mg PO Q8H PRN PRN Reason: PAIN - MILD TO MODERATE (1-7) Last Admin: 01/25/18 16:26 Dose: 1,000 mg Duloxetine HCl (Cymbalta) 60 mg PO QHS [facility] Last Admin: 01/25/18 21:34 Dose: 60 mg Enoxaparin Sodium (Lovenox) 40 mg SQ DAILY [facility] Last Admin: 01/26/18 10:38 Dose: 40 mg Guaifenesin (Mucinex) 600 mg PO BID [facility] Last Admin: 01/26/18 10:38 Dose: 600 mg Heparin Sodium (Porcine) () 500 unit IVP BID [facility] Last Admin: 01/26/18 10:54 Dose: 500 unit Hydralazine HCl (Apresoline) 50 mg PO TID [facility] Last Admin: 01/26/18 10:37 Dose: 50 mg Ertapenem 1 g/ Sodium Chloride 100 mls @ 100 mls/hr IV DAILY [facility] Last Infusion: 01/26/18 14:25 Dose: Infused Insulin Aspart (Novolog Flexpen) 1 unit SQ QIDACHS [facility] Last Admin: 01/26/18 14:26 Dose: Not Given Insulin Detemir (Levemir Flextouch) 50 unit SQ BID [facility] Last Admin: 01/26/18 14:25 Dose: Not Given Ranitidine HCl (Zantac) 150 mg PO DAILY [facility] Last Admin: 01/26/18 10:37 Dose: 150 mg Sodium Chloride () 10 ml IVP Q12H [facility] Last Admin: 01/25/18 21:37 Dose: 10 ml Sodium Chloride () 10 ml IVP Q12H [facility] Last Admin: 01/26/18 00:40 Dose: Not Given Sodium Polystyrene Sulfonate (Kayexelate) 15 gm PO BID [facility] Tamsulosin HCl (Flomax) 0.4 mg PO DAILY [facility] Last Admin: 01/26/18 10:38 Dose: 0.4 mg AMI Plan - Labs Result Diagrams: 01/18/18 11:15 01/26/18 06:35
[2018-01-26] MEDS: DULOXETINE HCL 30 MG CAPSULE.DR PO SCH (22:16)
[2018-01-27] MEDS: 0.9 % SODIUM CHLORIDE 10ML SYR IVP SCH ×4 (00:47→21:54)
[2018-01-27 07:57] LABS: CREATININE 1.2 mg/dL (0.5-0.9)
[2018-01-27] MEDS: NOVOLOG FLEXPEN (INSULIN ASPART) 100 UNITS/ML SQ SCH ×4 (09:13→21:51)
[2018-01-27] MEDS: ERTAPENEM SODIUM 1 G in 0.9 % SODIUM CHLORIDE 100ML 100 ML IV SCH (10:55)
[2018-01-27] MEDS: HYDRALAZINE HCL 25 MG TABLET PO SCH ×3 (10:56→21:53)
[2018-01-27] MEDS: TAMSULOSIN HCL 0.4 MG CAP.ER.24H PO SCH (10:56)
[2018-01-27] MEDS: GUAIFENESIN 600 MG TABCR PO SCH ×2 (10:57→21:53)
[2018-01-27] MEDS: ENOXAPARIN 40 MG/0.4 ML SYR SQ SCH (10:57)
[2018-01-27] MEDS: SPS 15 GM/60 ML PO SCH (10:58)
[2018-01-27] MEDS: LEVEMIR FLEXTOUCH 100 UNIT/ML INSULIN PEN SQ SCH ×2 (11:01→21:52)
[2018-01-27] MEDS: RANITIDINE HCL 150 MG TABLET PO SCH (11:03)
[2018-01-27] MEDS: HEPARIN SODIUM FLUSH 100 UNITS/ML SYR 5ML IVP SCH ×2 (11:53→21:54)
[2018-01-27] MEDS ORDERED: FLUCONAZOLE 100 MG TABLET PO ONE (17:51)
[2018-01-27] MEDS: DULOXETINE HCL 30 MG CAPSULE.DR PO SCH (21:53)
[2018-01-27] MEDS: HEPARIN SODIUM FLUSH 100 UNITS/ML SYR 5ML IVP PRN (21:54)
[2018-01-27] MEDS: 0.9 % SODIUM CHLORIDE 10ML SYR IVP PRN (21:55)
[2018-01-28] MEDS: HEPARIN SODIUM FLUSH 100 UNITS/ML SYR 5ML IVP PRN ×2 (05:59→22:12)
[2018-01-28] MEDS: 0.9 % SODIUM CHLORIDE 10ML SYR IVP PRN ×2 (05:59→22:12)
[2018-01-28] MEDS: 0.9 % SODIUM CHLORIDE 10ML SYR IVP SCH ×4 (06:04→22:12)
[2018-01-28 07:18] LABS: CREATININE 1.2 mg/dL (0.5-0.9)
[2018-01-28] MEDS: NOVOLOG FLEXPEN (INSULIN ASPART) 100 UNITS/ML SQ SCH ×4 (07:47→22:13)
[2018-01-28] MEDS: TAMSULOSIN HCL 0.4 MG CAP.ER.24H PO SCH (09:41)
[2018-01-28] MEDS: HEPARIN SODIUM FLUSH 100 UNITS/ML SYR 5ML IVP SCH ×2 (09:41→22:13)
[2018-01-28] MEDS: HYDRALAZINE HCL 25 MG TABLET PO SCH ×3 (09:41→22:11)
[2018-01-28] MEDS: ERTAPENEM SODIUM 1 G in 0.9 % SODIUM CHLORIDE 100ML 100 ML IV SCH (09:41)
[2018-01-28] MEDS: GUAIFENESIN 600 MG TABCR PO SCH ×2 (09:41→22:12)
[2018-01-28] MEDS: ENOXAPARIN 40 MG/0.4 ML SYR SQ SCH (09:42)
[2018-01-28] MEDS: LEVEMIR FLEXTOUCH 100 UNIT/ML INSULIN PEN SQ SCH ×2 (09:42→22:13)
[2018-01-28] MEDS: RANITIDINE HCL 150 MG TABLET PO SCH (12:18)
[2018-01-28] MEDS: DULOXETINE HCL 30 MG CAPSULE.DR PO SCH (22:11)
[2018-01-28] MEDS ORDERED: NYSTATIN 15 GM TUBE TOP PRN (22:30)
[2018-01-29] MEDS: 0.9 % SODIUM CHLORIDE 10ML SYR IVP SCH ×5 (01:30→23:02)
[2018-01-29] MEDS: HEPARIN SODIUM FLUSH 100 UNITS/ML SYR 5ML IVP PRN ×2 (06:52→22:39)
[2018-01-29] MEDS: 0.9 % SODIUM CHLORIDE 10ML SYR IVP PRN ×2 (06:52→22:40)
[2018-01-29 07:17] LABS: CREATININE 1.1 mg/dL (0.5-0.9)
[2018-01-29] MEDS: NOVOLOG FLEXPEN (INSULIN ASPART) 100 UNITS/ML SQ SCH ×4 (08:27→22:47)
[2018-01-29] MEDS: ERTAPENEM SODIUM 1 G in 0.9 % SODIUM CHLORIDE 100ML 100 ML IV SCH (09:36)
[2018-01-29] MEDS: HEPARIN SODIUM FLUSH 100 UNITS/ML SYR 5ML IVP SCH ×2 (09:36→22:39)
[2018-01-29] MEDS: HYDRALAZINE HCL 25 MG TABLET PO SCH ×3 (09:37→22:39)
[2018-01-29] MEDS: TAMSULOSIN HCL 0.4 MG CAP.ER.24H PO SCH (09:37)
[2018-01-29] MEDS: ENOXAPARIN 40 MG/0.4 ML SYR SQ SCH (09:37)
[2018-01-29] MEDS: GUAIFENESIN 600 MG TABCR PO SCH ×2 (09:38→22:38)
[2018-01-29] MEDS: LEVEMIR FLEXTOUCH 100 UNIT/ML INSULIN PEN SQ SCH ×2 (11:34→22:41)
[2018-01-29] MEDS: RANITIDINE HCL 150 MG TABLET PO SCH (11:34)
--- NOTE | 2018-01-29 14:27 | Occupational Therapy Tx Note ---
Occupational Therapy Tx Note - Treatment Note Tolerated: Good Total Time Spent With Patient: 50 (THER EX) Occupational Therapy Treatment Note: Detail (S: Pt resting in bed, reports she is very sleepy today. O: Supine to sit Indly and pivot transferred to wheelchair with walker Indly. Pt propelled wheelchair 100 feet before becoming fatigued. Transported to rehab. Pt completed kiya UE strengthening/endurance activities including overhead repetitive reaching with 3# wrist weights using resistive clothespins, 2 reps with shoulder arc (no weights) and 10 reps of wheelchair pushups. Pt educated to complete 10 reps of wheelchair pushups 2 times each day, she verbalized learning. Pt transported back to room and left up in chair. A: Improving UE endurance noted overall.) Occupational Therapy Problem List: Detail (1. Decreased Ind with bed mobility. 2. Decreased endurance and Ind with transfers. 3. Decreased endurance for safe and Ind self cares and IADLs.) Occupational Therapy Goals: 1. Pt will be Ind with bed mobility. 2. Pt will be safe and Ind with transfers from various surface heights. 3. Pt will be safe and Ind with total body bathing and dressing. 4. Pt will demonstrate improved endurance to allow safe and Ind light meal prep. Prognosis: Good Occupational Therapy Plan: OT 2-4 days per week to address mobility, endurance, ADLs/IADLs to allow return home Indly.
[2018-01-29] MEDS: DULOXETINE HCL 30 MG CAPSULE.DR PO SCH (22:38)
[2018-01-29] MEDS: NYSTATIN 15 GM TUBE TOP PRN (22:47)
[2018-01-30] MEDS: 0.9 % SODIUM CHLORIDE 10ML SYR IVP PRN ×3 (06:49→22:30)
[2018-01-30] MEDS: HEPARIN SODIUM FLUSH 100 UNITS/ML SYR 5ML IVP PRN ×3 (06:49→22:29)
[2018-01-30 07:12] LABS: CREATININE 1.3 mg/dL (0.5-0.9)
[2018-01-30] MEDS: NOVOLOG FLEXPEN (INSULIN ASPART) 100 UNITS/ML SQ SCH ×4 (09:49→22:30)
[2018-01-30] MEDS: LEVEMIR FLEXTOUCH 100 UNIT/ML INSULIN PEN SQ SCH ×2 (11:09→22:25)
[2018-01-30] MEDS: 0.9 % SODIUM CHLORIDE 10ML SYR IVP SCH ×4 (11:15→22:30)
[2018-01-30] MEDS: HYDRALAZINE HCL 25 MG TABLET PO SCH ×3 (11:15→22:24)
[2018-01-30] MEDS: TAMSULOSIN HCL 0.4 MG CAP.ER.24H PO SCH (11:16)
[2018-01-30] MEDS: ERTAPENEM SODIUM 1 G in 0.9 % SODIUM CHLORIDE 100ML 100 ML IV SCH (11:16)
[2018-01-30] MEDS: ENOXAPARIN 40 MG/0.4 ML SYR SQ SCH (11:17)
[2018-01-30] MEDS: GUAIFENESIN 600 MG TABCR PO SCH ×2 (11:17→22:24)
[2018-01-30] MEDS: RANITIDINE HCL 150 MG TABLET PO SCH (11:18)
[2018-01-30] MEDS: NYSTATIN 15 GM TUBE TOP PRN ×2 (11:20→22:23)
--- NOTE | 2018-01-30 11:40 | Physical Therapy Tx Note ---
Physical Therapy Tx Note - Treatment Note Physical Therapy Tx Note: Detail (Patient was seen to attempt to stand with prosthesis. Patient did not have proper clothing to allow for prosthesis, attempted other options including hospital pants and pillow case. Patient did not want to attempt standing and will try to have friend bring in shorts.) Physical Therapy Problem List: Detail (1) Reduced tolerance for physical activity 2) Limited B LE AROM (Needs to be assessed) 3) Limited strength in B LE 4) B LE pain 5) Non-ambulatory/ non-WB on heel 6) Requires assistance with bed mobility) Physical Therapy Goals: 1) Patient will tolerate 30 minutes of physical activity. 2) Patient will increase MMT by 1/3 of a grade in all motions in order to improve sit to stand transfers. 3) Patient will pivot transfer IND. 4 ) Patient will ambulate 3 steps with MOD assist. 5) Patient will be IND with all bed mobility. 6) Assess ROM Physical Therapy Plan: Patient will be seen 1-2 times a day (Mon-Fri).
[2018-01-30] MEDS: DULOXETINE HCL 30 MG CAPSULE.DR PO SCH (22:27)
[2018-01-30] MEDS: HEPARIN SODIUM FLUSH 100 UNITS/ML SYR 5ML IVP SCH ×2 (22:29→22:31)
[2018-01-31] MEDS: 0.9 % SODIUM CHLORIDE 10ML SYR IVP SCH ×4 (01:02→21:55)
[2018-01-31] MEDS: NOVOLOG FLEXPEN (INSULIN ASPART) 100 UNITS/ML SQ SCH ×4 (08:36→22:38)
[2018-01-31] MEDS: ERTAPENEM SODIUM 1 G in 0.9 % SODIUM CHLORIDE 100ML 100 ML IV SCH (10:03)
[2018-01-31] MEDS: LEVEMIR FLEXTOUCH 100 UNIT/ML INSULIN PEN SQ SCH ×3 (10:04→22:38)
[2018-01-31] MEDS: TAMSULOSIN HCL 0.4 MG CAP.ER.24H PO SCH (10:09)
[2018-01-31] MEDS: RANITIDINE HCL 150 MG TABLET PO SCH (10:09)
[2018-01-31] MEDS: HYDRALAZINE HCL 25 MG TABLET PO SCH ×3 (10:09→21:53)
[2018-01-31] MEDS: ENOXAPARIN 40 MG/0.4 ML SYR SQ SCH (10:09)
[2018-01-31] MEDS: GUAIFENESIN 600 MG TABCR PO SCH ×2 (10:10→21:53)
[2018-01-31] MEDS: HEPARIN SODIUM FLUSH 100 UNITS/ML SYR 5ML IVP SCH ×2 (10:40→21:52)
--- NOTE | 2018-01-31 14:46 | Physical Therapy Tx Note ---
Physical Therapy Tx Note - Treatment Note Tolerated: Good Total Time Spent With Patient: 20 Physical Therapy Tx Note: Detail (Patient was lying supine in bed upon arrival. Patient had no complaints of pain. Patient transfered EOB IND. Patient was able to don/doff prosthesis IND. Patient required CGA for sit to stand transfer from the elevated bed. Patient then ambulated 5' with a front wheeled walker and CGA x 2 with a WC following. Patient had to stop walking due to cramp in her R calf. Patient required MOD x 2 for sit to stand from the WC. Patient performed lateral weight shifts for approx 2 min, and ambulated another 3' before needing to sit due to fatigue and pain. Patient was left up in chair with call light in reach.) Physical Therapy Problem List: Detail (1) Reduced tolerance for physical activity 2) Limited B LE AROM (Needs to be assessed) 3) Limited strength in B LE 4) B LE pain 5) Non-ambulatory/ non-WB on heel 6) Requires assistance with bed mobility) Physical Therapy Goals: 1) Patient will tolerate 30 minutes of physical activity. 2) Patient will increase MMT by 1/3 of a grade in all motions in order to improve sit to stand transfers. 3) Patient will pivot transfer IND. 4 ) Patient will ambulate 3 steps with MOD assist. 5) Patient will be IND with all bed mobility. 6) Assess ROM Prognosis: Moderate Physical Therapy Plan: Patient will be seen 1-2 times a day (Mon-Fri).
[2018-01-31] MEDS: DULOXETINE HCL 30 MG CAPSULE.DR PO SCH (21:52)
[2018-02-01] MEDS: 0.9 % SODIUM CHLORIDE 10ML SYR IVP SCH ×3 (01:16→22:40)
[2018-02-01] MEDS: NOVOLOG FLEXPEN (INSULIN ASPART) 100 UNITS/ML SQ SCH ×4 (09:25→22:42)
[2018-02-01] MEDS: ERTAPENEM SODIUM 1 G in 0.9 % SODIUM CHLORIDE 100ML 100 ML IV SCH (09:34)
[2018-02-01] MEDS: ENOXAPARIN 40 MG/0.4 ML SYR SQ SCH (09:36)
[2018-02-01] MEDS: GUAIFENESIN 600 MG TABCR PO SCH ×2 (09:37→22:44)
[2018-02-01] MEDS: RANITIDINE HCL 150 MG TABLET PO SCH (09:37)
[2018-02-01] MEDS: TAMSULOSIN HCL 0.4 MG CAP.ER.24H PO SCH (09:38)
[2018-02-01] MEDS: LEVEMIR FLEXTOUCH 100 UNIT/ML INSULIN PEN SQ SCH ×2 (09:39→22:41)
[2018-02-01] MEDS: HEPARIN SODIUM FLUSH 100 UNITS/ML SYR 5ML IVP SCH ×2 (11:14→22:40)
[2018-02-01] MEDS: HYDRALAZINE HCL 25 MG TABLET PO SCH ×3 (11:14→22:44)
--- NOTE | 2018-02-01 15:03 | Physical Therapy Tx Note ---
<Dalila Browning L - Last Filed: 02/01/18 15:58> Physical Therapy Tx Note - Treatment Note Tolerated: Good Total Time Spent With Patient: 35 Physical Therapy Tx Note: Detail (Patient was seated on edge of bed upon VENDING MACHINE REFILLER and PT arrival. Patient states no new complaints. Patient donned prosthesis independently. Patient transferred sit to and from stand CGA x2. Patient required min assist x1 to resituate prosthesis upon standing. Patient ambulated 5 feet with wheeled walker CGA x1. Patient required seated rest break due to cramp in right LE. Patient transferred sit to stand from walker mod assist x2. Patient ambulated 4 feet with wheeled walker CGA x1. Patient transferred stand to sit CGA x2. Patient transferred sit to stand mod assist x2. Patient ambulated 6 feet with wheeled walker CGA x1. Patient transferred stand to sit CGA x2. Patient transferred sit to supine mod assist x2 to lift LEs. Patient transferred in bed max assist x2 to scoot over in bed. Patient tolerated treatment well. Patient reports fatigue after treatment. Patient was left reclined in bed with call light within reach.) Physical Therapy Problem List: Detail (1) Reduced tolerance for physical activity 2) Limited B LE AROM (Needs to be assessed) 3) Limited strength in B LE 4) B LE pain 5) Non-ambulatory/ non-WB on heel 6) Requires assistance with bed mobility) Physical Therapy Goals: 1) Patient will tolerate 30 minutes of physical activity. 2) Patient will increase MMT by 1/3 of a grade in all motions in order to improve sit to stand transfers. 3) Patient will pivot transfer IND. 4 ) Patient will ambulate 3 steps with MOD assist. 5) Patient will be IND with all bed mobility. 6) Assess ROM Prognosis: Good Physical Therapy Plan: Patient will be seen 1-2 times a day (Mon-Fri). <Robles Prakash H - Last Filed: 02/05/18 08:26> Physical Therapy Tx Note - Treatment Note Physical Therapy Tx Note: Detail (Patient was seated on edge of bed upon VENDING MACHINE REFILLER and PT arrival. Patient states no new complaints. Patient required minimal assistance x1 with prostethic positioning for donning at EOB. Patient transferred sit to and from stand CGA x2. Patient required min assist x1 to resituate prosthesis upon standing. Patient ambulated 5 feet with wheeled walker CGA x1. Patient required seated rest break due to cramp in right LE. Patient transferred sit to stand from walker mod assist x2. Patient ambulated 4 feet with wheeled walker CGA x1. Patient transferred stand to sit CGA x2. Patient transferred sit to stand mod assist x2. Patient ambulated 6 feet with wheeled walker CGA x1. Patient transferred stand to sit CGA x2. Patient transferred sit to supine mod assist x2 to lift LEs. Patient transferred in bed max assist x2 to scoot over in bed. Patient tolerated treatment well. Patient reports fatigue after treatment. Patient was left reclined in bed with call light within reach.) Physical Therapy Problem List: Detail
[2018-02-01] MEDS: ACETAMINOPHEN 500 MG TABLET PO PRN (21:24)
[2018-02-01] MEDS: DULOXETINE HCL 30 MG CAPSULE.DR PO SCH (22:44)
[2018-02-02] MEDS ORDERED: IBUPROFEN 600 MG TABLET PO PRN (09:18)
[2018-02-02] MEDS ORDERED: IBUPROFEN 600 MG TABLET PO ONE (09:19)
[2018-02-02] MEDS: 0.9 % SODIUM CHLORIDE 10ML SYR IVP SCH ×5 (10:30→23:25)
[2018-02-02] MEDS: GUAIFENESIN 600 MG TABCR PO SCH ×2 (10:42→22:11)
[2018-02-02] MEDS: ENOXAPARIN 40 MG/0.4 ML SYR SQ SCH (10:42)
[2018-02-02] MEDS: HYDRALAZINE HCL 25 MG TABLET PO SCH ×3 (10:43→22:11)
[2018-02-02] MEDS: TAMSULOSIN HCL 0.4 MG CAP.ER.24H PO SCH (10:43)
[2018-02-02] MEDS: NOVOLOG FLEXPEN (INSULIN ASPART) 100 UNITS/ML SQ SCH ×4 (10:46→23:23)
[2018-02-02] MEDS: ERTAPENEM SODIUM 1 G in 0.9 % SODIUM CHLORIDE 100ML 100 ML IV SCH (10:47)
[2018-02-02] MEDS: LEVEMIR FLEXTOUCH 100 UNIT/ML INSULIN PEN SQ SCH ×2 (10:48→23:24)
[2018-02-02] MEDS: RANITIDINE HCL 150 MG TABLET PO SCH (10:58)
[2018-02-02] MEDS: HEPARIN SODIUM FLUSH 100 UNITS/ML SYR 5ML IVP SCH (12:02)
--- NOTE | 2018-02-02 14:07 | Physical Therapy Tx Note ---
Physical Therapy Tx Note - Treatment Note Physical Therapy Tx Note: Detail (The patient refused PT secondary to medial R knee pain which was tender to palpation. PT agreed to hold PT until X-ray results are present. Patient had complaints of knee buckling during transfers. The patient states her Dad is building a ramp over stairs on porch. Will continue PT on Monday.) Physical Therapy Problem List: Detail (1) Reduced tolerance for physical activity 2) Limited B LE AROM (Needs to be assessed) 3) Limited strength in B LE 4) B LE pain 5) Non-ambulatory/ non-WB on heel 6) Requires assistance with bed mobility) Physical Therapy Goals: 1) Patient will tolerate 30 minutes of physical activity. 2) Patient will increase MMT by 1/3 of a grade in all motions in order to improve sit to stand transfers. 3) Patient will pivot transfer IND. 4 ) Patient will ambulate 3 steps with MOD assist. 5) Patient will be IND with all bed mobility. 6) Assess ROM Physical Therapy Plan: Patient will be seen 1-2 times a day (Mon-Mon).
[2018-02-02] MEDS: DULOXETINE HCL 30 MG CAPSULE.DR PO SCH (22:11)
[2018-02-02] MEDS: ACETAMINOPHEN 500 MG TABLET PO PRN (22:14)
[2018-02-03] MEDS: 0.9 % SODIUM CHLORIDE 10ML SYR IVP SCH ×4 (06:39→21:32)
[2018-02-03] MEDS: NOVOLOG FLEXPEN (INSULIN ASPART) 100 UNITS/ML SQ SCH ×5 (08:39→22:56)
[2018-02-03] MEDS: LEVEMIR FLEXTOUCH 100 UNIT/ML INSULIN PEN SQ SCH ×3 (08:54→22:56)
[2018-02-03] MEDS: ERTAPENEM SODIUM 1 G in 0.9 % SODIUM CHLORIDE 100ML 100 ML IV SCH (10:50)
[2018-02-03] MEDS: HYDRALAZINE HCL 25 MG TABLET PO SCH ×3 (10:53→21:29)
[2018-02-03] MEDS: GUAIFENESIN 600 MG TABCR PO SCH ×2 (10:53→21:29)
[2018-02-03] MEDS: RANITIDINE HCL 150 MG TABLET PO SCH (10:54)
[2018-02-03] MEDS: ENOXAPARIN 40 MG/0.4 ML SYR SQ SCH (10:54)
[2018-02-03] MEDS: TAMSULOSIN HCL 0.4 MG CAP.ER.24H PO SCH (10:54)
[2018-02-03] MEDS: HEPARIN SODIUM FLUSH 100 UNITS/ML SYR 5ML IVP SCH (12:03)
[2018-02-03] MEDS ORDERED: ZINC OXIDE 28.35 GM TUBE TOP ONE (15:11)
[2018-02-03] MEDS ORDERED: ZINC OXIDE 28.35 GM TUBE TOP PRN (15:18)
[2018-02-03] MEDS: DULOXETINE HCL 30 MG CAPSULE.DR PO SCH (21:29)
[2018-02-04] MEDS: 0.9 % SODIUM CHLORIDE 10ML SYR IVP SCH ×5 (00:29→22:10)
[2018-02-04] MEDS: NOVOLOG FLEXPEN (INSULIN ASPART) 100 UNITS/ML SQ SCH ×4 (08:08→22:07)
[2018-02-04] MEDS: ERTAPENEM SODIUM 1 G in 0.9 % SODIUM CHLORIDE 100ML 100 ML IV SCH (10:13)
[2018-02-04] MEDS: TAMSULOSIN HCL 0.4 MG CAP.ER.24H PO SCH (10:14)
[2018-02-04] MEDS: HYDRALAZINE HCL 25 MG TABLET PO SCH ×3 (10:14→21:56)
[2018-02-04] MEDS: RANITIDINE HCL 150 MG TABLET PO SCH (10:14)
[2018-02-04] MEDS: ENOXAPARIN 40 MG/0.4 ML SYR SQ SCH (10:15)
[2018-02-04] MEDS: GUAIFENESIN 600 MG TABCR PO SCH ×2 (10:15→21:57)
[2018-02-04] MEDS: LEVEMIR FLEXTOUCH 100 UNIT/ML INSULIN PEN SQ SCH ×2 (10:18→22:04)
[2018-02-04] MEDS: HEPARIN SODIUM FLUSH 100 UNITS/ML SYR 5ML IVP SCH (11:16)
[2018-02-04] MEDS: DULOXETINE HCL 30 MG CAPSULE.DR PO SCH (21:56)
[2018-02-05] MEDS: 0.9 % SODIUM CHLORIDE 10ML SYR IVP SCH ×5 (01:10→21:49)
[2018-02-05 06:42] LABS: BASO % 0.6 % (0-6); EOS % 5.7 % (0-6); GRAN % 56.1 % (47-80); HEMATOCRIT 28.1 % (35.0-47.0); HEMOGLOBIN 8.2 gm/dl (11.6-16.0); LYMPH % 25.1 % (16-45); MEAN CELL VOLUME 88.1 fl (81-97); MEAN CORPUSCULAR HEMOGLOBIN 25.7 pg (27-33); MEAN CORPUSCULAR HGB CONC 29.2 g/dl (32-36); MEAN PLATELET VOLUME 10.2 fl (7.4-10.4); MONO % 12.5 % (0-9); PLATELET COUNT 217 K/uL (130-400); RED BLOOD COUNT 3.19 M/uL (3.80-5.40); RED CELL DISTRIBUTION WIDTH 14.6 % (11.5-14.5); WHITE BLOOD COUNT W/O DIFF 5.5 K/uL (4.2-12.2)
[2018-02-05 06:57] LABS: CREATININE 1.1 mg/dL (0.5-0.9)
--- NOTE | 2018-02-05 07:24 | RADIOLOGY REPORT ---
EXAM: RIGHT KNEE HISTORY: PAIN. TECHNIQUE: Three views of the right knee were performed. FINDINGS: There is osteopenia. There is severe degenerative change of the medial compartment. No evidence of fracture or dislocation. No radiopaque loose body. IMPRESSION: OSTEOPENIA WITH SEVERE DEGENERATIVE CHANGE OF THE MEDIAL COMPARTMENT. JOB NUMBER: [id number] MTDD
[2018-02-05] MEDS: NOVOLOG FLEXPEN (INSULIN ASPART) 100 UNITS/ML SQ SCH ×4 (07:33→23:08)
[2018-02-05] MEDS: TAMSULOSIN HCL 0.4 MG CAP.ER.24H PO SCH (09:22)
[2018-02-05] MEDS: RANITIDINE HCL 150 MG TABLET PO SCH (09:22)
[2018-02-05] MEDS: HYDRALAZINE HCL 25 MG TABLET PO SCH ×3 (09:23→21:47)
[2018-02-05] MEDS: ENOXAPARIN 40 MG/0.4 ML SYR SQ SCH (09:24)
[2018-02-05] MEDS: LEVEMIR FLEXTOUCH 100 UNIT/ML INSULIN PEN SQ SCH ×2 (09:59→23:08)
[2018-02-05] MEDS: GUAIFENESIN 600 MG TABCR PO SCH ×2 (10:04→21:47)
[2018-02-05] MEDS: ERTAPENEM SODIUM 1 G in 0.9 % SODIUM CHLORIDE 100ML 100 ML IV SCH (10:30)
[2018-02-05] MEDS: HEPARIN SODIUM FLUSH 100 UNITS/ML SYR 5ML IVP SCH (11:46)
[2018-02-05] MEDS ORDERED: 0.9 % SODIUM CHLORIDE 10ML SYR IVP ONE (11:51)
[2018-02-05] MEDS ORDERED: HEPARIN SODIUM FLUSH 100 UNITS/ML SYR 5ML IVP ONE (11:51)
--- NOTE | 2018-02-05 14:31 | Physical Therapy Tx Note ---
Physical Therapy Tx Note - Treatment Note Tolerated: Poor Total Time Spent With Patient: 30 Physical Therapy Tx Note: Detail (Patient was seated EOB upon arrival. Patient had complaints of R knee pain but did not rate the pain on the 0-10 scale. Patients strength was retested MMT grades were as follows: R hip flexion 2/5, L hip flexion 4-/5, R knee extension 3+/5, L knee extension 4/5, R knee flexion 4/ 5, L knee flexion 4+/5, B ankle PF/DF 5/5, B hip ABD 5/5, B hip ADD 5/5. Patient donned her prosthesis IND. Patient performed 1 sit to stand transfer IND with CGA using a standard walker and elevated bed. Patient took 3 steps using standard walker and CGA. Patient stopped due to an increase in R knee pain. Patient required MAX A x2 during sit to supine transfer. Patient is planning on discharging tomorrow. Patient is unable to safely ambulate the necessary number of stairs to enter her home. The patients family has purchased supplies to create a ramp into the home, although it will not be done in time for discharge. manager route was notified of PT concerns with discharge to home, telehealth case manager is searching for alternative options, and will speak with patient. Patient was left supine in bed with call light in reach.) Physical Therapy Problem List: Detail Physical Therapy Goals: 1) Patient will tolerate 30 minutes of physical activity. 2) Patient will increase MMT by 1/3 of a grade in all motions in order to improve sit to stand transfers. 3) Patient will pivot transfer IND. 4 ) Patient will ambulate 3 steps with MOD assist. 5) Patient will be IND with all bed mobility. 6) Assess ROM Prognosis: Moderate Physical Therapy Plan: Patient will be seen 1-2 times a day (Mon-Fri).
--- NOTE | 2018-02-05 14:53 | Rehab Discharge Summary ---
Patient Information - Patient Information Diagnosis: Right heel diabetic ulcer, left BKA, lymphedema, possible osteomyelitis RLE Ordered Treatment: PT Evaluate and Treat Surgery: No Past Medical/Surgical Hx: PAST MEDICAL/SURGICAL HISTORY Past Surgical History t&a, ovarian cyst, salpingectomy, uterine ablation, hyst, lbka, PMH - Respiratory Hx Respiratory Disorders Yes Hx Asthma Yes: child Hx Pneumonia Yes: 2-3 yrs ago PMH - Cardiovascular Hx Cardiovascular Disorders Yes Hx Hypotension Yes Hx Irregular Heartbeat Yes: states high rate Comment: States has slight heart murmer and HX of tachycardia. 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 She has a ramp onto a back porch and 5-6 steps leading in the house with a railing on the right side when entering. She has a walk in shower but only completes a sponge bath, she washes her hair in the kitchen sink. She has a standard height toilet with a grab bar. She is mostly wheelchair bound and hasn't been up and down her steps since July. She is Ind with all self cares, meal prep, laundry and home mgmt.) Social History: Detail (Supportive parents) Precautions: Minerva, Fall, Other (Contact isolation) Subjective Information - Subjective Information Per Patient (Patient has been reporting R medial knee pain during standing. Patient has not rated pain on the 0-10 scale.) Objective Data - Pain Pain Present: Yes - Mental Status Patient Orientation: Oriented x3 - Visual Perception Appears within normal limits for therapeutic activities - ROM Not within normal limits (Patients B LE ROM is limited due to lymphedema.) - Strength/Tone Not within normal limits (Patient has limited strength in B LE.) - Bed Mobility Independent (Patient is IND with supine to sit transfers, but on one occasion requires MAX A x2 to perform sit to supine transfer, and scooting up in bed.) - Transfers Independent (Patient is IND with sit to stand transfers, and stand pivot transfers, using a standard walker and SBA for safety.) - Balance Balance Sitting: Good Balance Standing: Fair - Gait Detail (Patient has ambulated variable short distances using a standard walker, and her prosthesis, with CGA for safety. Patient however has developed R knee pain that is limiting her ability to ambulate.) Therapy Assessment - Therapy Assessment Detail (Patients performance is inconsistent. Patient is IND with all bed mobility and transfers, but on ocassion requires MAX A to help raise her legs, and scoot up in bed. Patient has ambulated short distances approx. 10' using her prosthetic and standard walker with CGA and a WC following. Ambulation distances have varied due to cramping in the R calf, and R knee pain. Initiation of use of the prosthesis was for stair climbing for patient to get into her house. Due to pain in her R knee with ambulation, patient was unable to ambulate or climb stairs. The patient was to be bumped up stairs with the assistance of the fire department. Her father is to construct a ramp for patient's safe exit from the house. Patient is IND with her HEP.) Patient Education - Patient Education Teaching Topic: Exercise/Activity (LAQ, hip marches, ankle pumps, hip ADD squeeze, hip ABD, glut sets, quad sets, hamstring sets.) Response: Return Demonstration, Verbalize Understanding Teaching Method: Demonstration Teaching Recipient: Patient Barriers To Learning: Age Related Problem List - Problem List Physical Therapy Problem List: Detail (1) Non-ambulatory on stairs 2) B LE weakness 3) R knee pain 4) Lymphedema) Occupational Therapy Problem List: Detail (1. Decreased Ind with bed mobility. 2. Decreased endurance and Ind with transfers. 3. Decreased endurance for safe and Ind self cares and IADLs.) Goals - Goals Physical Therapy Goals: 1) Patient will tolerate 30 minutes of physical activity (Goal Partially Met). 2) Patient will increase MMT by 1/3 of a grade in all motions in order to improve sit to stand transfers (Goal Partially Met). 3) Patient will pivot transfer IND. (Goal Met). 4) Patient will ambulate 3 steps with MOD assist (Goal Not Met-Patient is not safe to ambulate on stairs). 5) Patient will be IND with all bed mobility (Goal Met). 6) Assess ROM (Goal Met) Occupational Therapy Goals: 1. Pt will be Ind with bed mobility. 2. Pt will be safe and Ind with transfers from various surface heights. 3. Pt will be safe and Ind with total body bathing and dressing. 4. Pt will demonstrate improved endurance to allow safe and Ind light meal prep. Prognosis - Prognosis Moderate Plan - Plan Physical Therapy Plan: Patient will be discharged to home PT. Patient is to recieve Home PT for assessment of the patient's safe mobility in her home environment including use of ramp that is to be constructed. Occupational Therapy Plan: OT 2-4 days per week to address mobility, endurance, ADLs/IADLs to allow return home Indly.
[2018-02-05] MEDS: ASCORBIC ACID 500 MG TAB PO SCH (15:42)
[2018-02-05] MEDS: FERROUS SULFATE 325 MG TAB PO SCH (15:42)
[2018-02-05] MEDS: DULOXETINE HCL 30 MG CAPSULE.DR PO SCH (21:47)
[2018-02-06] MEDS: 0.9 % SODIUM CHLORIDE 10ML SYR IVP SCH ×2 (01:08→10:08)
[2018-02-06 07:59] LABS: HEMOGLOBIN 8.5 gm/dl (11.6-16.0)
[2018-02-06] MEDS: NOVOLOG FLEXPEN (INSULIN ASPART) 100 UNITS/ML SQ SCH ×2 (08:22→12:13)
[2018-02-06] MEDS: HYDRALAZINE HCL 25 MG TABLET PO SCH (10:08)
[2018-02-06] MEDS: TAMSULOSIN HCL 0.4 MG CAP.ER.24H PO SCH (10:09)
[2018-02-06] MEDS: HEPARIN SODIUM FLUSH 100 UNITS/ML SYR 5ML IVP SCH (10:09)
[2018-02-06] MEDS: ERTAPENEM SODIUM 1 G in 0.9 % SODIUM CHLORIDE 100ML 100 ML IV SCH (10:09)
[2018-02-06] MEDS: FERROUS SULFATE 325 MG TAB PO SCH (10:10)
[2018-02-06] MEDS: GUAIFENESIN 600 MG TABCR PO SCH (10:11)
[2018-02-06] MEDS: ASCORBIC ACID 500 MG TAB PO SCH (10:11)
[2018-02-06] MEDS: ENOXAPARIN 40 MG/0.4 ML SYR SQ SCH (10:11)
[2018-02-06] MEDS: RANITIDINE HCL 150 MG TABLET PO SCH (10:12)
[2018-02-06] MEDS: LEVEMIR FLEXTOUCH 100 UNIT/ML INSULIN PEN SQ SCH (10:13)
--- NOTE | 2018-02-06 10:57 | Discharge Summary ---
Providers Discharge Summary Date: 02/06/18 Date of admission: 01/12/18 12:32 Expected Date of Discharge: 02/06/18 Attending physician: SAMMI LEWIS Primary care physician: GAVIN SOLANO D.O. Physical Exam - Vital Signs Vital Signs: Vital Signs - Last 24 Hrs Temp Pulse Resp BP Pulse Ox 02/06/18 07:56 97.5 F L 93 H 16 143/66 96 02/05/18 20:00 98.8 F 100 H 16 135/59 91 L - General General Appearance: Alert, Oriented x3, Cooperative, No acute distress Limitations: Physical limitation (lymphadema in legs and left BKA) - Head Head exam: Normal inspection - Eye Eye exam: Normal appearance Pupils: Normal accommodation - ENT ENT exam: Mucous membranes moist, Normal external ear exam Nasal Exam: Normal inspection. negative: Discharge Mouth exam: Normal external inspection - Neck Neck exam: Normal inspection, Full ROM - Respiratory Respiratory exam: Normal lung sounds bilaterally. negative: Respiratory distress - Cardiovascular Cardiovascular Exam: Regular rate, Normal rhythm, Systolic murmur (2/6, known) Peripheral Pulses: 2+: Radial (R), Radial (L) - GI/Abdominal GI/Abdominal exam: Soft, Normal bowel sounds. negative: Tenderness - Rectal Rectal exam: Deferred - exam: Deferred - Extremities Extremities exam: Other (left bka w/ dressing, lymphadema in right leg - wrapped. ) - Back Back exam: Reports: Normal inspection - Neurological Neurological exam: Abnormal gait - Psychiatric Psychiatric exam: Normal affect, Normal mood - Skin Skin exam: Dry Hospitalization - Hospitalization Admission Diagnosis: Right heel Diabetic ulcer-poss osteomylitis right heel by bone scan-chronic anemia-Left BKA-lymphodema - Problem List (1) Weakness generalized Current Visit: No Status: Acute Base Code: R53.1 - WEAKNESS Comment: - Improving. Patient has been working with PT/OT to improve strength and physical functioning. -At this time patient has returned to baseline functioning. Uses wheelchair and has prosthesis for left BKA. -Will DC home today with visiting nursing, and home pt/ot (2) Diabetic ulcer of right heel Current Visit: Yes Status: Acute Base Code: E11.621 - TYPE 2 DIABETES MELLITUS WITH FOOT ULCER; L97.419 - NON-PRS CHR ULCER OF RIGHT HEEL AND MIDFOOT W UNSP SEVERT Comment: 02/06/18: -oozing wound of right mid plantar and heel -Ertapenem to be d/c today, will pull PICC. Night Patrol Inspector to prescribe PO abx therapy as needed -Continue following up with ID and podiatry (3) Obesity, morbid, BMI 50 or higher Current Visit: Yes Status: Acute Base Code: E66.01 - MORBID (SEVERE) OBESITY DUE TO EXCESS CALORIES Comment: 02/06/18: - sedentary lifestyle with high cardiovascular risk. - deconditioned as a result of weight and L BKA. - PT/OT daily (4) Complete below knee amputation of left lower extremity Current Visit: Yes Status: Chronic Base Code: S88.112A - COMPLETE TRAUM AMP AT [facility] AND [facility], L LOW LEG, INIT Comment: 02/06/18: -limited mobility due to left BKA -PT/OT daily while patient was swingbed admission (5) DNR (do not resuscitate) Current Visit: No Status: Acute Base Code: Z66 - DO NOT RESUSCITATE Comment: 02/06/18 - patient is DNR - Hospitalization Course Disposition: Home Health Service Hospital Course: Ms. Olivares is a 62 y/o female with recent discharge from [facility] being admitted to swing bed for continued IV antibiotic therapy due diabetic foot ulcer of the right heel. The patient says that her ulcer initially began in July and she was only applying topical antibiotics but then she noticed a foul smell coming from the foot and more discharge. She was being managed as per the wound clinic at [facility] but she failed outpatient therapy and was admitted to [facility] for IV antibiotic therapy. She also has a left BKA and is obese with a sedentary lifestyle. Her other medical history includes hypertension, diabetes mellitus type II, urinary retention and depression. She has been on IV ertapenem and gentamicin but on discharge has only been continued on ertapenem. MRI was not able to be done of the right foot due to weight restrictions. A three phase bone scan was done which showed mild increase in activity with localization to the proximal tarsal bones but no definite osteomyelitis. PCP: Dr. Solano 02/06/18: Patient has received 25 days of Invanz via PICC. Patient will dc home today, PICC to be pulled. Dr. Harris (Night Patrol Inspector) to order PO antibiotics as needed. Patient will dc home with home nursing, and visiting PT/OT. At this time patient has returned to baseline functioning. Due to Left BKA and obesity , patient has a sedentary lifestyle at baseline and uses a wheelchair for most mobility. Hemoglobin has remained stable, no rise in WBC, K+ WNL, and blood glucose managed with insulin sliding scale. Patient to resume home sliding scale orders per wrapper cashier upon dc. Procedures: Imaging and X-Rays 02/02/18 09:16 KNEE, RIGHT 4 VIEWS [RAD] Urgent Cardiology Procedures 01/18/18 12:52 Telemetry [Wrapper Dipper] .Continuous Abnormal Labs: Abnormal Lab Results 01/12/18 01/12/18 01/12/18 Range/Units 13:30 17:00 22:00 RBC (3.80-5.40) M/uL Hgb (11.6-16.0) gm/dl Hct (35.0-47.0) % MCH (27-33) pg MCHC (32-36) g/dl RDW (11.5-14.5) % Monocytes % (0-9) % Sodium (136-145) mmol/L Potassium (3.4-4.5) mmol/L Chloride (98-107) mmol/L BUN (8-23) mg/dL Creatinine (0.5-0.9) mg/dL POC Glucose 167 H 128 H 156 H (70-110) mg/dL Random Glucose (74-109) mg/dL Calcium (8.8-10.2) mg/dL Iron (37-145) ug/dL 01/13/18 01/14/18 01/14/18 Range/Units 21:40 07:55 17:00 RBC (3.80-5.40) M/uL Hgb (11.6-16.0) gm/dl Hct (35.0-47.0) % MCH (27-33) pg MCHC (32-36) g/dl RDW (11.5-14.5) % Monocytes % (0-9) % Sodium (136-145) mmol/L Potassium (3.4-4.5) mmol/L Chloride (98-107) mmol/L BUN (8-23) mg/dL Creatinine (0.5-0.9) mg/dL POC Glucose 190 H 111 H 112 H (70-110) mg/dL Random Glucose (74-109) mg/dL Calcium (8.8-10.2) mg/dL Iron (37-145) ug/dL 01/15/18 01/15/18 01/15/18 Range/Units 12:55 17:00 22:00 RBC (3.80-5.40) M/uL Hgb (11.6-16.0) gm/dl Hct (35.0-47.0) % MCH (27-33) pg MCHC (32-36) g/dl RDW (11.5-14.5) % Monocytes % (0-9) % Sodium (136-145) mmol/L Potassium (3.4-4.5) mmol/L Chloride (98-107) mmol/L BUN (8-23) mg/dL Creatinine (0.5-0.9) mg/dL POC Glucose 151 H 126 H 170 H (70-110) mg/dL Random Glucose (74-109) mg/dL Calcium (8.8-10.2) mg/dL Iron (37-145) ug/dL 01/16/18 01/16/18 01/17/18 Range/Units 06:45 21:54 11:45 RBC (3.80-5.40) M/uL Hgb (11.6-16.0) gm/dl Hct (35.0-47.0) % MCH (27-33) pg MCHC (32-36) g/dl RDW (11.5-14.5) % Monocytes % (0-9) % Sodium (136-145) mmol/L Potassium (3.4-4.5) mmol/L Chloride (98-107) mmol/L BUN (8-23) mg/dL Creatinine (0.5-0.9) mg/dL POC Glucose 53 L 118 H 126 H (70-110) mg/dL Random Glucose (74-109) mg/dL Calcium (8.8-10.2) mg/dL Iron (37-145) ug/dL 01/17/18 01/18/18 01/18/18 Range/Units 21:36 08:00 11:15 RBC 3.37 L (3.80-5.40) M/uL Hgb 8.6 L (11.6-16.0) gm/dl Hct 29.3 L (35.0-47.0) % MCH 25.5 L (27-33) pg MCHC 29.4 L (32-36) g/dl RDW 14.7 H (11.5-14.5) % Monocytes % 9.3 H (0-9) % Sodium (136-145) mmol/L Potassium (3.4-4.5) mmol/L Chloride (98-107) mmol/L BUN (8-23) mg/dL Creatinine (0.5-0.9) mg/dL POC Glucose 160 H 137 H (70-110) mg/dL Random Glucose (74-109) mg/dL Calcium (8.8-10.2) mg/dL Iron (37-145) ug/dL 01/18/18 01/18/18 01/18/18 Range/Units 11:15 12:39 17:16 RBC (3.80-5.40) M/uL Hgb (11.6-16.0) gm/dl Hct (35.0-47.0) % MCH (27-33) pg MCHC (32-36) g/dl RDW (11.5-14.5) % Monocytes % (0-9) % Sodium (136-145) mmol/L Potassium 6.2 H* (3.4-4.5) mmol/L Chloride (98-107) mmol/L BUN 38 H (8-23) mg/dL Creatinine 1.6 H (0.5-0.9) mg/dL POC Glucose 153 H 135 H (70-110) mg/dL Random Glucose 166 H (74-109) mg/dL Calcium 8.6 L (8.8-10.2) mg/dL Iron (37-145) ug/dL 01/18/18 01/19/18 01/19/18 Range/Units 21:10 06:20 07:30 RBC (3.80-5.40) M/uL Hgb (11.6-16.0) gm/dl Hct (35.0-47.0) % MCH (27-33) pg MCHC (32-36) g/dl RDW (11.5-14.5) % Monocytes % (0-9) % Sodium (136-145) mmol/L Potassium 5.7 H 5.6 H (3.4-4.5) mmol/L Chloride (98-107) mmol/L BUN 37 H 36 H (8-23) mg/dL Creatinine 1.6 H 1.5 H (0.5-0.9) mg/dL POC Glucose 59 L (70-110) mg/dL Random Glucose 164 H 69 L (74-109) mg/dL Calcium 8.4 L 8.5 L (8.8-10.2) mg/dL Iron (37-145) ug/dL 01/19/18 01/19/18 01/20/18 Range/Units 17:00 21:53 06:32 RBC (3.80-5.40) M/uL Hgb (11.6-16.0) gm/dl Hct (35.0-47.0) % MCH (27-33) pg MCHC (32-36) g/dl RDW (11.5-14.5) % Monocytes % (0-9) % Sodium (136-145) mmol/L Potassium 5.6 H (3.4-4.5) mmol/L Chloride (98-107) mmol/L BUN 34 H (8-23) mg/dL Creatinine 1.4 H (0.5-0.9) mg/dL POC Glucose 57 L 183 H (70-110) mg/dL Random Glucose (74-109) mg/dL Calcium 8.2 L (8.8-10.2) mg/dL Iron (37-145) ug/dL 01/20/18 01/20/18 01/20/18 Range/Units 11:30 17:00 22:12 RBC (3.80-5.40) M/uL Hgb (11.6-16.0) gm/dl Hct (35.0-47.0) % MCH (27-33) pg MCHC (32-36) g/dl RDW (11.5-14.5) % Monocytes % (0-9) % Sodium (136-145) mmol/L Potassium (3.4-4.5) mmol/L Chloride (98-107) mmol/L BUN (8-23) mg/dL Creatinine (0.5-0.9) mg/dL POC Glucose 146 H 168 H 202 H (70-110) mg/dL Random Glucose (74-109) mg/dL Calcium (8.8-10.2) mg/dL Iron (37-145) ug/dL 01/21/18 01/21/18 01/21/18 Range/Units 07:30 11:30 17:00 RBC (3.80-5.40) M/uL Hgb (11.6-16.0) gm/dl Hct (35.0-47.0) % MCH (27-33) pg MCHC (32-36) g/dl RDW (11.5-14.5) % Monocytes % (0-9) % Sodium (136-145) mmol/L Potassium (3.4-4.5) mmol/L Chloride (98-107) mmol/L BUN (8-23) mg/dL Creatinine (0.5-0.9) mg/dL POC Glucose 163 H 201 H 181 H (70-110) mg/dL Random Glucose (74-109) mg/dL Calcium (8.8-10.2) mg/dL Iron (37-145) ug/dL 01/21/18 01/22/18 01/22/18 Range/Units 22:10 06:05 11:30 RBC (3.80-5.40) M/uL Hgb (11.6-16.0) gm/dl Hct (35.0-47.0) % MCH (27-33) pg MCHC (32-36) g/dl RDW (11.5-14.5) % Monocytes % (0-9) % Sodium (136-145) mmol/L Potassium 4.9 H (3.4-4.5) mmol/L Chloride (98-107) mmol/L BUN 32 H (8-23) mg/dL Creatinine 1.2 H (0.5-0.9) mg/dL POC Glucose 233 H 136 H (70-110) mg/dL Random Glucose 131 H (74-109) mg/dL Calcium 8.1 L (8.8-10.2) mg/dL Iron (37-145) ug/dL 01/22/18 01/22/18 01/23/18 Range/Units 17:00 22:11 07:53 RBC (3.80-5.40) M/uL Hgb (11.6-16.0) gm/dl Hct (35.0-47.0) % MCH (27-33) pg MCHC (32-36) g/dl RDW (11.5-14.5) % Monocytes % (0-9) % Sodium (136-145) mmol/L Potassium (3.4-4.5) mmol/L Chloride (98-107) mmol/L BUN (8-23) mg/dL Creatinine (0.5-0.9) mg/dL POC Glucose 136 H 170 H 180 H (70-110) mg/dL Random Glucose (74-109) mg/dL Calcium (8.8-10.2) mg/dL Iron (37-145) ug/dL 01/23/18 01/23/18 01/24/18 Range/Units 12:17 17:45 06:28 RBC (3.80-5.40) M/uL Hgb (11.6-16.0) gm/dl Hct (35.0-47.0) % MCH (27-33) pg MCHC (32-36) g/dl RDW (11.5-14.5) % Monocytes % (0-9) % Sodium (136-145) mmol/L Potassium 4.8 H (3.4-4.5) mmol/L Chloride (98-107) mmol/L BUN 32 H (8-23) mg/dL Creatinine 1.3 H (0.5-0.9) mg/dL POC Glucose 191 H 139 H (70-110) mg/dL Random Glucose 169 H (74-109) mg/dL Calcium 8.1 L (8.8-10.2) mg/dL Iron (37-145) ug/dL 01/24/18 01/24/18 01/24/18 Range/Units 12:34 17:37 17:52 RBC (3.80-5.40) M/uL Hgb (11.6-16.0) gm/dl Hct (35.0-47.0) % MCH (27-33) pg MCHC (32-36) g/dl RDW (11.5-14.5) % Monocytes % (0-9) % Sodium (136-145) mmol/L Potassium (3.4-4.5) mmol/L Chloride (98-107) mmol/L BUN (8-23) mg/dL Creatinine (0.5-0.9) mg/dL POC Glucose 213 H 213 H 150 H (70-110) mg/dL Random Glucose (74-109) mg/dL Calcium (8.8-10.2) mg/dL Iron (37-145) ug/dL 01/24/18 01/25/18 01/26/18 Range/Units 22:21 12:30 00:38 RBC (3.80-5.40) M/uL Hgb (11.6-16.0) gm/dl Hct (35.0-47.0) % MCH (27-33) pg MCHC (32-36) g/dl RDW (11.5-14.5) % Monocytes % (0-9) % Sodium (136-145) mmol/L Potassium (3.4-4.5) mmol/L Chloride (98-107) mmol/L BUN (8-23) mg/dL Creatinine (0.5-0.9) mg/dL POC Glucose 169 H 174 H 174 H (70-110) mg/dL Random Glucose (74-109) mg/dL Calcium (8.8-10.2) mg/dL Iron (37-145) ug/dL 01/26/18 01/26/18 01/26/18 Range/Units 06:35 08:09 12:12 RBC (3.80-5.40) M/uL Hgb (11.6-16.0) gm/dl Hct (35.0-47.0) % MCH (27-33) pg MCHC (32-36) g/dl RDW (11.5-14.5) % Monocytes % (0-9) % Sodium (136-145) mmol/L Potassium 4.7 H (3.4-4.5) mmol/L Chloride (98-107) mmol/L BUN 29 H (8-23) mg/dL Creatinine 1.2 H (0.5-0.9) mg/dL POC Glucose 173 H 183 H (70-110) mg/dL Random Glucose 171 H (74-109) mg/dL Calcium 8.2 L (8.8-10.2) mg/dL Iron (37-145) ug/dL 01/26/18 01/26/18 01/27/18 Range/Units 17:25 22:20 06:25 RBC (3.80-5.40) M/uL Hgb (11.6-16.0) gm/dl Hct (35.0-47.0) % MCH (27-33) pg MCHC (32-36) g/dl RDW (11.5-14.5) % Monocytes % (0-9) % Sodium (136-145) mmol/L Potassium (3.4-4.5) mmol/L Chloride (98-107) mmol/L BUN 31 H (8-23) mg/dL Creatinine 1.2 H (0.5-0.9) mg/dL POC Glucose 167 H 211 H (70-110) mg/dL Random Glucose 136 H (74-109) mg/dL Calcium 8.4 L (8.8-10.2) mg/dL Iron (37-145) ug/dL 01/27/18 01/27/18 01/27/18 Range/Units 11:45 17:20 22:00 RBC (3.80-5.40) M/uL Hgb (11.6-16.0) gm/dl Hct (35.0-47.0) % MCH (27-33) pg MCHC (32-36) g/dl RDW (11.5-14.5) % Monocytes % (0-9) % Sodium (136-145) mmol/L Potassium (3.4-4.5) mmol/L Chloride (98-107) mmol/L BUN (8-23) mg/dL Creatinine (0.5-0.9) mg/dL POC Glucose 160 H 177 H 162 H (70-110) mg/dL Random Glucose (74-109) mg/dL Calcium (8.8-10.2) mg/dL Iron (37-145) ug/dL 01/28/18 01/28/18 01/28/18 Range/Units 06:05 11:30 17:00 RBC (3.80-5.40) M/uL Hgb (11.6-16.0) gm/dl Hct (35.0-47.0) % MCH (27-33) pg MCHC (32-36) g/dl RDW (11.5-14.5) % Monocytes % (0-9) % Sodium (136-145) mmol/L Potassium (3.4-4.5) mmol/L Chloride (98-107) mmol/L BUN 30 H (8-23) mg/dL Creatinine 1.2 H (0.5-0.9) mg/dL POC Glucose 118 H 161 H (70-110) mg/dL Random Glucose 122 H (74-109) mg/dL Calcium 8.3 L (8.8-10.2) mg/dL Iron (37-145) ug/dL 01/29/18 01/29/18 01/29/18 Range/Units 06:51 11:30 21:59 RBC (3.80-5.40) M/uL Hgb (11.6-16.0) gm/dl Hct (35.0-47.0) % MCH (27-33) pg MCHC (32-36) g/dl RDW (11.5-14.5) % Monocytes % (0-9) % Sodium 149 H (136-145) mmol/L Potassium 4.9 H (3.4-4.5) mmol/L Chloride 111 H (98-107) mmol/L BUN 28 H (8-23) mg/dL Creatinine 1.1 H (0.5-0.9) mg/dL POC Glucose 127 H 182 H (70-110) mg/dL Random Glucose (74-109) mg/dL Calcium 8.3 L (8.8-10.2) mg/dL Iron (37-145) ug/dL 01/30/18 01/30/18 01/30/18 Range/Units 06:49 17:20 22:00 RBC (3.80-5.40) M/uL Hgb (11.6-16.0) gm/dl Hct (35.0-47.0) % MCH (27-33) pg MCHC (32-36) g/dl RDW (11.5-14.5) % Monocytes % (0-9) % Sodium (136-145) mmol/L Potassium (3.4-4.5) mmol/L Chloride (98-107) mmol/L BUN 29 H (8-23) mg/dL Creatinine 1.3 H (0.5-0.9) mg/dL POC Glucose 132 H 124 H (70-110) mg/dL Random Glucose (74-109) mg/dL Calcium 8.4 L (8.8-10.2) mg/dL Iron (37-145) ug/dL 01/31/18 02/01/18 02/01/18 Range/Units 12:13 11:30 22:36 RBC (3.80-5.40) M/uL Hgb (11.6-16.0) gm/dl Hct (35.0-47.0) % MCH (27-33) pg MCHC (32-36) g/dl RDW (11.5-14.5) % Monocytes % (0-9) % Sodium (136-145) mmol/L Potassium (3.4-4.5) mmol/L Chloride (98-107) mmol/L BUN (8-23) mg/dL Creatinine (0.5-0.9) mg/dL POC Glucose 133 H 140 H 147 H (70-110) mg/dL Random Glucose (74-109) mg/dL Calcium (8.8-10.2) mg/dL Iron (37-145) ug/dL 02/02/18 02/02/18 02/02/18 Range/Units 07:30 11:30 17:00 RBC (3.80-5.40) M/uL Hgb (11.6-16.0) gm/dl Hct (35.0-47.0) % MCH (27-33) pg MCHC (32-36) g/dl RDW (11.5-14.5) % Monocytes % (0-9) % Sodium (136-145) mmol/L Potassium (3.4-4.5) mmol/L Chloride (98-107) mmol/L BUN (8-23) mg/dL Creatinine (0.5-0.9) mg/dL POC Glucose 111 H 149 H 143 H (70-110) mg/dL Random Glucose (74-109) mg/dL Calcium (8.8-10.2) mg/dL Iron (37-145) ug/dL 02/02/18 02/03/18 02/04/18 Range/Units 22:00 22:40 07:30 RBC (3.80-5.40) M/uL Hgb (11.6-16.0) gm/dl Hct (35.0-47.0) % MCH (27-33) pg MCHC (32-36) g/dl RDW (11.5-14.5) % Monocytes % (0-9) % Sodium (136-145) mmol/L Potassium (3.4-4.5) mmol/L Chloride (98-107) mmol/L BUN (8-23) mg/dL Creatinine (0.5-0.9) mg/dL POC Glucose 219 H 114 H 114 H (70-110) mg/dL Random Glucose (74-109) mg/dL Calcium (8.8-10.2) mg/dL Iron (37-145) ug/dL 02/04/18 02/04/18 02/04/18 Range/Units 11:43 17:00 22:00 RBC (3.80-5.40) M/uL Hgb (11.6-16.0) gm/dl Hct (35.0-47.0) % MCH (27-33) pg MCHC (32-36) g/dl RDW (11.5-14.5) % Monocytes % (0-9) % Sodium (136-145) mmol/L Potassium (3.4-4.5) mmol/L Chloride (98-107) mmol/L BUN (8-23) mg/dL Creatinine (0.5-0.9) mg/dL POC Glucose 153 H 128 H 151 H (70-110) mg/dL Random Glucose (74-109) mg/dL Calcium (8.8-10.2) mg/dL Iron (37-145) ug/dL 02/05/18 02/05/18 02/05/18 Range/Units 06:30 06:30 06:30 RBC 3.19 L (3.80-5.40) M/uL Hgb 8.2 L (11.6-16.0) gm/dl Hct 28.1 L (35.0-47.0) % MCH 25.7 L (27-33) pg MCHC 29.2 L (32-36) g/dl RDW 14.6 H (11.5-14.5) % Monocytes % 12.5 H (0-9) % Sodium (136-145) mmol/L Potassium 4.6 H (3.4-4.5) mmol/L Chloride (98-107) mmol/L BUN 31 H (8-23) mg/dL Creatinine 1.1 H (0.5-0.9) mg/dL POC Glucose (70-110) mg/dL Random Glucose 56 L (74-109) mg/dL Calcium 8.3 L (8.8-10.2) mg/dL Iron 35 L (37-145) ug/dL 02/05/18 02/05/18 02/05/18 Range/Units 07:39 11:45 17:00 RBC (3.80-5.40) M/uL Hgb (11.6-16.0) gm/dl Hct (35.0-47.0) % MCH (27-33) pg MCHC (32-36) g/dl RDW (11.5-14.5) % Monocytes % (0-9) % Sodium (136-145) mmol/L Potassium (3.4-4.5) mmol/L Chloride (98-107) mmol/L BUN (8-23) mg/dL Creatinine (0.5-0.9) mg/dL POC Glucose 61 L 111 H 117 H (70-110) mg/dL Random Glucose (74-109) mg/dL Calcium (8.8-10.2) mg/dL Iron (37-145) ug/dL 02/05/18 02/06/18 02/06/18 Range/Units 22:31 07:40 07:56 RBC (3.80-5.40) M/uL Hgb 8.5 L (11.6-16.0) gm/dl Hct 28.0 L (35.0-47.0) % MCH (27-33) pg MCHC (32-36) g/dl RDW (11.5-14.5) % Monocytes % (0-9) % Sodium (136-145) mmol/L Potassium (3.4-4.5) mmol/L Chloride (98-107) mmol/L BUN (8-23) mg/dL Creatinine (0.5-0.9) mg/dL POC Glucose 130 H 151 H (70-110) mg/dL Random Glucose (74-109) mg/dL Calcium (8.8-10.2) mg/dL Iron (37-145) ug/dL Condition at Discharge: (2) Stable Discharge Medications - Discharge Medications Home Medications: Ambulatory Orders Guaifenesin [Mucinex] 600 mg PO BID #60 tabcr 11/18/15 [Last Taken Unknown] Insulin Detemir [Levemir Flextouch] 50 unit SQ 0900,2100 #5 syringe 11/18/15 [ Last Taken Unknown] Loratadine [Claritin] 10 mg PO DAILY #30 tablet 11/18/15 [Last Taken Unknown] Ondansetron [Zofran Odt] 4 mg SL Q8H PRN #20 tab.rapdis 11/18/15 [Last Taken Unknown] Ranitidine HCl [Zantac] 150 mg PO DAILY #30 tablet 11/18/15 [Last Taken Unknown] Tamsulosin HCl [Flomax] 0.4 mg PO DAILY #30 cap.er.24h 11/18/15 [Last Taken Unknown] Discharge Plan - Discharge Instructions Activity at Discharge: Increase Activity as Tolerated Diet at Discharge: Advance to Usual Diet Additional Instructions: [facility] will contact you at home to start services within 24-48 hours of getting home. Appointment with Dr. Harris Monday, 02/06 at 3:00PM Appointment with Dr. Solano 02/13 at 10:30AM Quality Measures - Quality Measures Quality Measures: Documentation of Current Medications in Medical Record, Screening for High Blood Pressure and F/U Documented - Current Medications Quality Measure: Measure #130: Documentation of Current Medications Documentation of Current Medications: <Current Medications Documented/Reviewed> [G8427] - Blood Pressure Screening Quality Measure: Screening for High Blood Pressure and Follow-Up Documented Does Patient Have Any of the Following: Active Dx of HTN Blood Pressure Classification: Pre-Hypertensive BP Reading Systolic Measurement: 133 Diastolic Measurement: 67 Screening for High Blood Pressure: Patient Exclusion, Hx of HTN [G9744] - Elder Abuse Suspicion Index EASI Reference Information: Meryl GERARD, Garcia Shea, Eliane D, Adonay Esparza.Development and validation of a tool to assist physicians identification of elder abuse: The Elder Abuse Suspicion Index (EASI ). Journal of Elder Abuse and Neglect, 2008; 20 (3): 276-300.
--- NOTE | 2018-02-06 14:36 | Rehab Discharge Summary ---
Patient Information - Patient Information Diagnosis: Right heel diabetic ulcer, left BKA, lymphedema, possible osteomyelitis RLE Ordered Treatment: OT Evaluate and Treat Surgery: No Past Medical/Surgical Hx: PAST MEDICAL/SURGICAL HISTORY Past Surgical History t&a, ovarian cyst, salpingectomy, uterine ablation, hyst, lbka, PMH - Respiratory Hx Respiratory Disorders Yes Hx Asthma Yes: child Hx Pneumonia Yes: 2-3 yrs ago PMH - Cardiovascular Hx Cardiovascular Disorders Yes Hx Hypotension Yes Hx Irregular Heartbeat Yes: states high rate Comment: States has slight heart murmer and HX of tachycardia. 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 She has a ramp onto a back porch and 5-6 steps leading in the house with a railing on the right side when entering. She has a walk in shower but only completes a sponge bath, she washes her hair in the kitchen sink. She has a standard height toilet with a grab bar. She is mostly wheelchair bound and hasn't been up and down her steps since July. She is Ind with all self cares, meal prep, laundry and home mgmt.) Social History: Detail (Supportive parents) Precautions: [place], Fall, Other (Contact isolation) Subjective Information - Subjective Information Per Patient Objective Data - Pain Pain Present: No - Mental Status Patient Orientation: Oriented x3 - Visual Perception Appears within normal limits for therapeutic activities - ROM Within normal limits (Aditya UE AROM functional) - Strength/Tone Within normal limits (Aditya UE strength 4+/5) - Coordination Appears within normal limits for therapeutic activities - Bed Mobility Independent - Transfers Independent (Ind with stand pivot transfers) - Balance Balance Sitting: Good Balance Standing: Good - Sensation Intact - ADL's/IADL's Detail (Pt is Ind with sponge bathing, washing hair in sink, dressing and grooming/hygiene) Therapy Assessment - Therapy Assessment Detail (Pt is Ind with all self cares.) Problem List - Problem List Physical Therapy Problem List: Detail (1) Non-ambulatory on stairs 2) B LE weakness 3) R knee pain 4) Lymphedema) Occupational Therapy Problem List: Detail (1. Decreased Ind with bed mobility. 2. Decreased endurance and Ind with transfers. 3. Decreased endurance for safe and Ind self cares and IADLs.) Goals - Goals Physical Therapy Goals: 1) Patient will tolerate 30 minutes of physical activity (Goal Partially Met). 2) Patient will increase MMT by 1/3 of a grade in all motions in order to improve sit to stand transfers (Goal Partially Met). 3) Patient will pivot transfer IND. (Goal Met). 4) Patient will ambulate 3 steps with MOD assist (Goal Not Met-Patient is not safe to ambulate on stairs). 5) Patient will be IND with all bed mobility (Goal Met). 6) Assess ROM (Goal Met) Occupational Therapy Goals: Goals met: 1. Pt will be Ind with bed mobility. 2. Pt will be safe and Ind with transfers from various surface heights. 3. Pt will be safe and Ind with total body bathing and dressing. 4. Pt will demonstrate improved endurance to allow safe and Ind light meal prep. Prognosis - Prognosis Good Plan - Plan Physical Therapy Plan: Patient will be discharged to home PT. Patient is to recieve Home PT for assessment of the patient's safe mobility in her home environment including use of ramp that is to be constructed. Occupational Therapy Plan: Pt is discharging home with home therapy.
== END 2018-02-06 14:23 | disposition home health service (06) | DRG 948 ==
LOC: MEDSURG 12:32
PROVIDERS: ADMIT Internal Medicine; ATTEND Internal Medicine
DX: R53.81 Other malaise (principal); L97.419 Non-pressure chronic ulcer of right heel and midfoot with unspecified severity; S88.112A Complete traumatic amputation at level between knee and ankle, left lower leg, initial encounter; E11.621 Type 2 diabetes mellitus with foot ulcer; D53.9 Nutritional anemia, unspecified; R21 Rash and other nonspecific skin eruption; E66.01 Morbid (severe) obesity due to excess calories; I10 Essential (primary) hypertension; E11.9 Type 2 diabetes mellitus without complications; R33.9 Retention of urine, unspecified; F32.9 Major depressive disorder, single episode, unspecified; Z66 Do not resuscitate; I89.0 Lymphedema, not elsewhere classified
CPT/HCPCS: 36416; 80048; 82948; 83540; 85014; 85018; 85025; 94640; 97110; 97530; 97535; 99306; 99309; 99316; J1650; J7613

== ENCOUNTER 2018-06-13 14:58 | Emergency (ER) | payer MEDICARE ==
--- NOTE | 2018-06-13 15:31 | Emergency Department Record ---
History of Present Illness - General Chief complaint: Extremity Problem Stated complaint: FOOT PAIN Time Seen by Provider: 06/13/18 15:13 Source: Patient, RN notes reviewed Mode of Arrival: Ambulatory - History of Present Illness Initial comments: patient has a foot infection of the right foot for one year and she said it is starting to get odiferious. Dr. Anne external grinder tender is treating her foot ulcer . H diabetes mellitius . 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 Onset/Timin -: Days(s) Location: Right, Foot History of Same: Yes Consistency: Intermittent Improves with: Nothing Worsens with: Nothing Associated Symptoms: Denies other symptoms - Related Data Home Medications Medication Instructions Recorded Confirmed Last Taken Duloxetine HCl [Cymbalta] 60 mg PO DAILY 06/13/18 06/13/18 06/13/18 Hydralazine HCl 50 mg PO ASDIR 06/13/18 06/13/18 06/13/18 Previous Rx's Medication Instructions Recorded Guaifenesin [Mucinex] 600 mg PO BID #60 tabcr 11/18/15 Insulin Detemir [Levemir Flextouch] 50 unit SQ 0900,2100 #5 syringe 11/18/15 Ranitidine HCl [Zantac] 150 mg PO DAILY #30 tablet 11/18/15 Tamsulosin HCl [Flomax] 0.4 mg PO DAILY #30 cap.er.24h 11/18/15 Ferrous Sulfate [Iron] 325 mg PO DAILY 30 Days tab 02/06/18 Allergies Allergy/AdvReac Type Severity Reaction Status Date / Time cefaclor [From Ceclor] Allergy RASH Verified 06/13/18 15:05 scopolamine Allergy ITCHING Verified 06/13/18 15:05 vancomycin Allergy ITCHING Verified 06/13/18 15:05 Travel Screening - Travel/Exposure Within Last 30 Days Have you traveled within the last 30 days?: No - Travel/Exposure Within Last Year Have you traveled outside the [place] in the last year?: No - Additonal Travel Details Have you been exposed to anyone with a communicable illness?: No - Travel Symptoms Symptom Screening: None Review of Systems Reviewed: No additional complaints except as noted below Constitutional: Reports: As per HPI. Denies: Chills, Fever, Malaise, Night sweats, Weakness, Weight change Eyes: Reports: As per HPI. Denies: Eye discharge, Eye pain, Photophobia, Vision change ENT: Reports: As per HPI. Denies: Congestion, Dental pain, Ear pain, Epistaxis , Hearing loss, Throat pain Respiratory: Reports: As per HPI. Denies: Cough, Dyspnea, Hemoptysis, Stridor, Wheezes Cardiovascular: Reports: As per HPI. Denies: Arrhythmia, Chest pain, Dyspnea on exertion, Edema, Murmurs, Orthopnea, Palpitations, Paroxysmal nocturnal dyspnea, Rheumatic Fever, Syncope Endocrine: Reports: As per HPI. Denies: Fatigue, Heat or cold intolerance, Polydipsia, Polyuria Gastrointestinal: Reports: As per HPI. Denies: Abdominal pain, Constipation, Diarrhea, Hematemesis, Hematochezia, Melena, Nausea, Vomiting Genitourinary: Reports: As per HPI. Denies: Abnormal menses, Discharge, Dyspareunia, Dysuria, Frequency, Hematuria, Incontinence, Retention, Urgency Musculoskeletal: Reports: As per HPI. Denies: Arthralgia, Back pain, Gout, Joint swelling, Myalgia, Neck pain Skin: Reports: As per HPI, Other (right foot ulcer ). Denies: Bruising, Change in color, Change in hair/nails, Lesions, Pruritus, Rash Neurological: Reports: As per HPI. Denies: Abnormal gait, Confusion, Headache, Numbness, Paresthesias, Seizure, Tingling, Tremors, Vertigo, Weakness Psychiatric: Reports: As per HPI. Denies: Anxiety, Auditory hallucinations, Depression, Homicidal thoughts, Suicidal thoughts, Visual hallucinations Hematological/Lymphatic: Reports: As per HPI. 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) - ENDOCRINE Hx Endocrine Disorders: Yes Hx Diabetes: Yes Hx Thyroid Disease: No - MUSCULOSKELETAL Hx Musculoskeletal Disorders: Yes Hx Arthritis: Yes Comment:: lbka - PSYCH Hx Psych Problems: Yes Hx Depression: Yes - HEMATOLOGY/ONCOLOGY Hx Hematology/Oncology Disorders: No Family Medical History Any Significant Family History?: Yes Hx Alcohol Use: Grandparents Hx Cancer: Father Hx Depression: Brother/Sister Hx Diabetes: Mother, Brother/Sister, Grandparents Hx Heart Disease: Mother Hx Resp Disorders: Grandparents Hx Stroke: Grandparents Physical Exam - General General Appearance: Alert, Oriented x3, Cooperative, No acute distress - Head Head exam: Normal inspection - Eye Eye exam: Normal appearance, PERRL Pupils: Normal accommodation - ENT ENT exam: Normal exam, Mucous membranes moist, Normal external ear exam, Normal orophraynx, TM's normal bilaterally Ear exam: Normal external inspection. negative: External canal tenderness Nasal Exam: Normal inspection. negative: Discharge, Sinus tenderness Mouth exam: Normal external inspection, Tongue normal Teeth exam: Normal inspection. negative: Dental caries Throat exam: Normal inspection. negative: Tonsillar erythema, Tonsillar exudate - Neck Neck exam: Normal inspection, Full ROM. negative: Tenderness - Respiratory Respiratory exam: Normal lung sounds bilaterally. negative: Respiratory distress - Cardiovascular Cardiovascular Exam: Regular rate, Normal rhythm, Normal heart sounds - GI/Abdominal GI/Abdominal exam: Soft, Normal bowel sounds. negative: Tenderness - Rectal Rectal exam: Deferred - exam: Deferred - Extremities Extremities exam: Normal inspection, Full ROM, Normal capillary refill, Other ( large deep ulcer on the right heel). negative: Tenderness - Back Back exam: Reports: Normal inspection, Full ROM. Denies: Muscle spasm, Rash noted, Tenderness - Neurological Neurological exam: Alert, Normal gait, Oriented X3, Reflexes normal - Psychiatric Psychiatric exam: Normal affect, Normal mood - Skin Skin exam: Dry, Intact, Normal color, Warm Course Vital Signs 06/13/18 15:10 Temperature 98 F Pulse Rate 99 H Respiratory 20 Rate Blood Pressure 167/88 Pulse Ox [address] Corona and will transport [facility] for ID , MRI and to rule out osteomylitis Medical Decision Making - Data Complexity MDM Data: Labs Ordered and/or Reviewed (WBC 8,400, hg 9.2), X-Ray Ordered and/ or Reviewed (xray neg for osteomyolitis and MRI recommended) - Lab Data Result diagrams: 06/13/18 16:05 06/13/18 16:05 Disposition Clinical Impression: Ulcer of heel Qualifiers: Laterality: right Non-pressure ulcer stage: with necrosis of muscle Qualified Code(s): L97.413 - Non-pressure chronic ulcer of right heel and midfoot with necrosis of muscle Osteomyelitis Qualifiers: Osteomyelitis type: unspecified type Osteomyelitis location: foot Laterality: right Qualified Code(s): M86.9 - Osteomyelitis, unspecified Disposition: Acute Care Hospital Transfer Condition: (2) Stable Forms: Patient Portal Access Time of Disposition: 17:41 Quality - Quality Measures Quality Measures: N/A - Blood Pressure Screening Does Patient Have Any of the Following: No, Active Dx of HTN Blood Pressure Classification: Pre-Hypertensive BP Reading Systolic Measurement: 167 Diastolic Measurement: 88 Screening for High Blood Pressure: Patient Exclusion, Hx of HTN [[id number]]
[2018-06-13 16:21] LABS: BASO % 0.4 % (0-6); EOS % 3.9 % (0-6); GRAN % 67.5 % (47-80); HEMATOCRIT 28.7 % (35.0-47.0); HEMOGLOBIN 9.2 gm/dl (11.6-16.0); LYMPH % 19.6 % (16-45); MEAN CELL VOLUME 88.6 fl (81-97); MEAN CORPUSCULAR HGB CONC 32.1 g/dl (32-36); MEAN PLATELET VOLUME 9.8 fl (7.4-10.4); MONO % 8.6 % (0-9); PLATELET COUNT 233 K/uL (130-400); RED BLOOD COUNT 3.24 M/uL (3.80-5.40); RED CELL DISTRIBUTION WIDTH 14.1 % (11.5-14.5); WHITE BLOOD COUNT W/O DIFF 8.4 K/uL (4.2-12.2)
[2018-06-13 16:23] LABS: MEAN CORPUSCULAR HEMOGLOBIN 28.3 pg (27-33)
[2018-06-13 16:33] LABS: C-REACTIVE PROTEIN 0.54 mg/dL (<0.5)
--- NOTE | 2018-06-15 09:28 | RADIOLOGY REPORT ---
EXAM: RIGHT FOOT, THREE VIEWS HISTORY: HEEL ULCER FOR ONE YEAR. TECHNIQUE: AP, oblique and lateral views of the right foot were obtained. Comparison: None. Encounter: Initial. FINDINGS: The bones are demineralized. Mild flattening of the second metatarsal head can be seen with avascular necrosis. Moderate osteoarthritis at the first MTP and IP joints and scattered throughout the MTP and interphalangeal joints. No definite cortical erosion of the calcaneus to suggest osteomyelitis. Overlying soft tissue ulceration is noted at the heel. There is a calcaneal plantar spur. Degenerative changes are present in the hindfoot and midfoot. IMPRESSION: NO EVIDENCE FOR OSTEOMYELITIS. MRI WOULD BE MORE SENSITIVE FOR EARLY OSTEOMYELITIS. JOB NUMBER: [id number] [facility]
== END 2018-06-13 19:47 | disposition short-term general hospital (02) ==
LOC: ER 14:58
DX: E11.621 Type 2 diabetes mellitus with foot ulcer (principal); L97.413 Non-pressure chronic ulcer of right heel and midfoot with necrosis of muscle; M86.9 Osteomyelitis, unspecified; I95.9 Hypotension, unspecified; Z89.512 Acquired absence of left leg below knee; Z79.4 Long term (current) use of insulin
CPT/HCPCS: 80048; 85025; 86140; 99285